=== PATIENT | male | born 1965 | race Caucasian/White ===

== ENCOUNTER 2021-11-12 19:44 | Emergency (ER) | payer BC, SELFPAY ==
[2021-11-12 19:51] VITALS: BP 152/80; PULSE 86; RESP 16; TEMP 36.7; O2SAT 94
--- NOTE | 2021-11-12 19:59 | XRR_ITS ---
PROCEDURE INFORMATION: Exam: XR Chest Exam date and time: 11/12/2021 10:21 PM Age: 55 years old Clinical indication: Shortness of breath; Additional info: SOB TECHNIQUE: Imaging protocol: Radiologic exam of the chest. Views: 1 view. COMPARISON: MRI Shoulder w/o LEFT* [id number] 03/05/2016 7:37 AM FINDINGS: Lungs: The lung bases are suboptimally assessed due to technique however the upper lungs are clear of focal consolidation.Right basilar linear opacity, likely atelectasis. Pleural spaces: Unremarkable. No pleural effusion. No pneumothorax. Heart/Mediastinum: Cardiac silhouette appears normal in size. No obvious vascular congestion. Bones/joints: No acute osseous findings. Other findings: Single view was submitted. XR/XR chest 1V portable [id number] IMPRESSION: Right basilar linear opacity, likely atelectasis. Suboptimal lung base assessment. Followup including lateral view may be obtained if clinically indicated.
--- NOTE | 2021-11-12 22:18 | CTR_ITS ---
PROCEDURE INFORMATION: Exam: CT Head Without Contrast Exam date and time: 11/12/2021 10:30 PM Age: 55 years old Clinical indication: Syncope and collapse TECHNIQUE: Imaging protocol: Computed tomography of the head without contrast. Radiation optimization: All CT scans at this facility use at least one of these dose optimization techniques: automated exposure control; mA and/or kV adjustment per patient size (includes targeted exams where dose is matched to clinical indication); or iterative reconstruction. COMPARISON: No relevant prior studies available. RADIATION DOSE METRICS: Total DLP (mGy-cm): 1152.68 FINDINGS: Brain: Normal. No hemorrhage. Unremarkable white matter. No mass effect. Cerebral ventricles: No ventriculomegaly. Paranasal sinuses: Visualized sinuses are unremarkable. No fluid levels. Mastoid air cells: Visualized mastoid air cells are well aerated. Bones/joints: Unremarkable. No acute fracture. Soft tissues: Unremarkable. CT/CT head wo con* [id number] IMPRESSION: No acute intracranial abnormality.
--- NOTE | 2021-11-12 22:18 | ED_ITS ---
HPI - Syncope General: Chief Complaint: Syncope Stated Complaint: SEIZURE LIKE ACTIVITY/SYNCOPE Time Seen by Provider: 11/12/21 21:46 Source: patient Mode of arrival: ambulatory Limitations: no limitations History of Present Illness: 55-year-old male states that roughly 3 hours ago he was sat in a recliner states he started having a coughing fit and had a syncopal episode. Family states he was lost consciousness for roughly 5 to 10 seconds he states that he currently feels back to normal. He states he is having these coughing fits before and has had lightheadedness with that this is a first time he passed out he denies any chest pain denies any shortness of breath denies any headache. Associated symptoms: Deny abdominal pain, fever(s), headache(s) or nausea Review of Systems Const: Denies: fever(s), chills, body aches or change in appetite Eyes: Denies: blurry vision or eye discomfort ENMT: Denies: throat pain or dental pain Card: Reports: syncope Resp: Denies: dyspnea GI: Denies: abdominal pain, nausea, vomiting or diarrhea : Denies: dysuria Musc: Denies: neck pain or back pain Skin/Breast: Denies: rash Neuro: Denies: headache(s) Psych: Denies: depression Noé/Lymph: Denies: easy bruising All/Imm: Denies: urticaria PFSH ED PFSH: Medical History Allergic rhinitis due to allergen Hx of testicular cancer Surgical History (Updated 08/04/21 @ 08:38 by Gus Pro MD) History of orchiectomy Social History Smoking and tobacco status: never smoked Physical Exam Const: COMMON NORMALS: no acute distress, patient oriented x3 and healthy appearing HENMT: COMMON NORMALS: normocephalic and atraumatic HEAD & SCALP: normocephalic and atraumatic Eye: COMMON NORMALS: Equal, round and reactive pupils present and EOMs intact bilaterally PUPIL: Yes Equal, round and reactive pupils present Neck/C-Spine: COMMON NORMALS: full ROM and supple Chest: COMMONS NORMALS: normal inspection of the chest and normal palpation of entire chest wall Resp: COMMON NORMALS: normal respiratory effort, No retractions, No use of accessory muscles and clear to auscultation bilaterally AUSCULTATION: clear to auscultation bilaterally Cardio: COMMON NORMALS: regular rate, regular rhythm and No murmurs present (Cardio) RATE: regular rate RHYTHM: regular rhythm GI: COMMON NORMALS: Normal to inspection, nondistended, normoactive bowel sounds present, Soft to palpation, non-tender and no masses PALPATION: Yes Soft to palpation Extremity: COMMON NORMALS: normal to inspection and full ROM Neuro: COMMON NORMALS: patient oriented x3, moves all extremities and no focal motor deficits Psych: COMMON NORMALS: mental status grossly normal, Normal thought process present and cooperative THOUGHT PROCESS: Normal thought process present Skin: COMMON NORMALS: no rashes or lesions noted and no wounds GENERAL SKIN EXAM: no rashes or lesions noted Course Vital Signs: Vital signs: Vital Signs Temperature 98.0 F 11/12/21 19:51 Pulse Rate 86 11/12/21 19:51 Respiratory Rate 16 11/12/21 19:51 Blood Pressure 152/80 11/12/21 19:51 Pulse Oximetry 94 11/12/21 19:51 MDM - Syncope Medical Decision Making Patient presents here with syncope likely COVID as he has had a chronic cough for months he is on lisinopril this could be causing his cough he has no signs of pneumonia will stop his lisinopril and write him a prescription for HCTZ he is to follow-up his PCP and return if worsening. Lab Data : 11/12/21 22:49 11/12/21 23:41 Radiology Impressions Chest X-Ray 11/12/21 19:59 IMPRESSION: Right basilar linear opacity, likely atelectasis. Suboptimal lung base assessment. Followup including lateral view may be obtained if clinically indicated. Head CT 11/12/21 22:18 IMPRESSION: No acute intracranial abnormality. Laboratory Results WBC 11.7 10^3/uL (4.0-10.0) H 11/12/21 22:49 RBC 4.78 10^6/uL (4.1-5.3) 11/12/21 22:49 Hgb 13.6 g/dL (11.7-16.6) 11/12/21 22:49 Hct 41.1 % (42.0-52.0) L 11/12/21 22:49 MCV 86.0 fl (80-94) 11/12/21 22:49 MCH 28.5 pg (28.0-34.0) 11/12/21 22:49 MCHC 33.1 g/dL (30.0-36.0) 11/12/21 22:49 RDW 15.9 % (12.1-15.1) H 11/12/21 22:49 Plt Count 249 10^3/cmm (130-400) 11/12/21 22:49 MPV 10.6 fL (7.4-10.4) H 11/12/21 22:49 Neut % (Auto) 67.3 % 11/12/21 22:49 Lymph % (Auto) 20.9 % 11/12/21 22:49 [place] % (Auto) 6.9 % 11/12/21 22:49 Eos % (Auto) 2.8 % 11/12/21 22:49 Baso % (Auto) 0.7 % 11/12/21 22:49 Neut # (Auto) 7.91 10^3/uL (1.8-7.7) H 11/12/21 22:49 Lymph # (Auto) 2.5 10^3/uL (0.8-4.8) 11/12/21 22:49 [place] # (Auto) 0.8 10^3/uL (0.2-0.9) 11/12/21 22:49 Eos # (Auto) 0.3 10^3/uL (0.0-0.8) 11/12/21 22:49 Baso # (Auto) 0.1 10^3/uL (0.0-0.1) 11/12/21 22:49 Nucleated RBC % (auto) 0 % 11/12/21 22:49 Nucleated RBCs # 0.0 /100WBC 11/12/21 22:49 Sodium 135 mmol/L (136-145) L 11/12/21 23:41 Potassium 4.6 mmol/L (3.5-5.1) 11/12/21 23:41 Chloride 99 mmol/L (98-107) 11/12/21 23:41 Carbon Dioxide 25 mmol/L (22-29) 11/12/21 23:41 Anion Gap 15.6 (5-19) 11/12/21 23:41 BUN 31 mg/dL (6-20) H 11/12/21 23:41 Creatinine 1.2 mg/dL (0.7-1.2) 11/12/21 23:41 GFR Calculation 62.6 mL/min (90-130) L 11/12/21 23:41 Glucose 364 mg/dL (65-115) H 11/12/21 23:41 Calculated Osmolality 301 mOsm/kg (285-295) H 11/12/21 23:41 Calcium 9.3 mg/dL (8.5-10.5) 11/12/21 23:41 Total Bilirubin 0.2 mg/dL (0.15-1.2) 11/12/21 23:41 AST 18 U/L (0-40) 11/12/21 23:41 ALT 34 U/L (0-41) 11/12/21 23:41 Alkaline Phosphatase 169 IU/L (40-130) H 11/12/21 23:41 Total Protein 7.1 g/dL (6.6-8.7) 11/12/21 23:41 Albumin 4.0 g/dL (3.5-5.2) 11/12/21 23:41 Globulin 3.1 g/dL (1.3-4.6) 11/12/21 23:41 Discharge Plan Discharge Patient Disposition: Home Clinical Impression: Syncope Condition: Stable Prescriptions: New hydrochlorothiazide 25 mg tablet 25 mg PO DAILY Qty: 30 0RF Discontinued lisinopril-hydrochlorothiazide 10-12.5 mg tablet 1 tab PO DAILY 0RF No Action Humalog U-100 Insulin 100 unit/mL cartridge See Rx Instructions SUBCUT TID 0RF Rx Instructions: SLIDING SCALE SUBCUT three times daily; Tresiba FlexTouch U-100 100 unit/mL (3 mL) insulin pen See Rx Instructions SUBCUT BID 0RF Rx Instructions: 24 units in the morning, 84 units at night SUBCUT twice a day; paroxetine HCl [Paxil] PO DAILY 0RF prednisone 20 mg tablet 60 mg PO DAILY 5 Days Qty: 15 0RF Discharge Orders: Discharge ED (Routine); Ordered 11/13/21 Ordered By: Kelvin Contreras Referrals: Nba Arreaga [Primary Care Provider] - Discharge Diet: Advance as tolerated Discharge Activity: Resume usual activity Patient Instructions: Syncope (ED) Coding Level of Care Code ED Trimming Department Blocker for Chg Fwd Exam Comprehensive
[2021-11-12 22:55] LABS: Basophils # 0.1 10^3/uL (0.0-0.1); Basophils % 0.7 %; Eosinophils # 0.3 10^3/uL (0.0-0.8); Eosinophils % 2.8 %; Hematocrit 41.1 % (42.0-52.0); Hemoglobin 13.6 g/dL (11.7-16.6); Lymphocytes # 2.5 10^3/uL (0.8-4.8); Lymphocytes % 20.9 %; Mean Corpuscular HGB Conc 33.1 g/dL (30.0-36.0); Mean Corpuscular Hemoglobin 28.5 pg (28.0-34.0); Mean Platelet Volume 10.6 fL (7.4-10.4); Monocytes # 0.8 10^3/uL (0.2-0.9); Monocytes % 6.9 %; Neutrophils # 7.91 10^3/uL (1.8-7.7); Neutrophils % 67.3 %; Nucleated Red Blood Cells % 0 %; Platelet Count 249 10^3/cmm (130-400); Red Blood Count 4.78 10^6/uL (4.1-5.3); Red Cell Distribution Width 15.9 % (12.1-15.1); White Blood Count 11.7 10^3/uL (4.0-10.0)
[2021-11-13 00:09] LABS: Alanine Aminotransferase 34 U/L (0-41); Alkaline Phosphatase 169 IU/L (40-130); Anion Gap 15.6 (5-19); Aspartate Amino Transferase 18 U/L (0-40); Blood Urea Nitrogen 31 mg/dL (6-20); Calcium 9.3 mg/dL (8.5-10.5); Carbon Dioxide 25 mmol/L (22-29); Chloride 99 mmol/L (98-107); Creatinine Clr Calc Pharmacy 102.4193; Globulin 3.1 g/dL (1.3-4.6); Glomerular Filtration Rate 62.6 mL/min (90-130); Glucose 364 mg/dL (65-115); Osmolality Calculated 301 mOsm/kg (285-295); Potassium 4.6 mmol/L (3.5-5.1); Sodium 135 mmol/L (136-145); Total Bilirubin 0.2 mg/dL (0.15-1.2); Total Protein 7.1 g/dL (6.6-8.7)
[2021-11-13 00:26] VITALS: BP 166/91; PULSE 82; RESP 17; O2SAT 95
== END 2021-11-13 00:28 | disposition home or self-care (01) ==
PROVIDERS: Emergency Provider Emergency Medicine; PCP Family Medicine
DX: R55 Syncope and collapse (principal); Z79.4 Long term (current) use of insulin; Z85.47 Personal history of malignant neoplasm of testis
CPT/HCPCS: 70450; 71045; 80053; 85025; 99285

== ENCOUNTER 2022-08-19 10:38 | Inpatient (IN) | payer BC, SELFPAY ==
[2022-08-19] VITALS (11 sets, daily range): BP systolic 124–212; BP diastolic 61–88; PULSE 66–112; RESP 18–19; TEMP 36.7–37.2; O2SAT 94–97; BMI 45.4
--- NOTE | 2022-08-19 10:45 | ECG_ITS ---
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 Measurements Intervals [place] Rate: 103 P: 142 WI: 138 QRS: 102 QRSD: 94 T: 134 QT: 317 QTc: 415 Interpretive Statements ECTOPIC ATRIAL TACHYCARDIA POSSIBLE LEFT ATRIAL ENLARGEMENT [-0.1mV P-WAVE IN V1/V2] RIGHT AXIS DEVIATION [QRS AXIS > 100] INCOMPLETE RIGHT BUNDLE BRANCH BLOCK [90+ ms QRS DURATION, TERMINAL R IN V1/V2, 40+ ms S IN I/aVL/V4/V5/V6] MODERATE ST DEPRESSION [0.05+ mV ST DEPRESSION] INTERPRETATION BASED ON A DEFAULT AGE OF 40 YEARS No previous ECG available for comparison Electronically Signed On 08-20-2022 1:32:41 CDT by David Evans M.D. [id number] f
--- NOTE | 2022-08-19 11:39 | XRR_ITS ---
PROCEDURE INFORMATION: Exam: XR Chest Exam date and time: 08/19/2022 12:24 PM Age: 56 years old Clinical indication: Cough and dyspnea; Additional info: Dyspnea/cough TECHNIQUE: Imaging protocol: Radiologic exam of the chest. Views: 1 view. COMPARISON: CR XR chest 1V portable [id number] 11/12/2021 10:21 PM FINDINGS: Lungs: Lungs are clear. Pleural spaces: There is no pleural effusion or pneumothorax. Heart/Mediastinum: Cardiomediastinal contours are unremarkable. Bones/joints: Bones are unremarkable. XR/XR chest 1V portable [id number] IMPRESSION: No acute findings.
--- NOTE | 2022-08-19 11:39 | PC.PHAR ---
pt states he takes care of his own medications-pt states he is no longer taking gabapentin 300mg hs ext shows last filled 08/11/22 30d/s pt states he took one cap and it didnt help so he is no longer taking-pt states he hasnt taken any of his meds or insulin for 2 days-
--- NOTE | 2022-08-19 11:43 | US_ITS ---
WS: [id number] RIGHT UPPER QUADRANT ULTRASOUND HISTORY: RUQ abd pain COMPARISON: 11/16/2012 Liver: 21.5 cm in length. Enlarged heterogeneous liver. The entire liver is not very well visualized due to marked attenuation and fatty infiltration. Portal Vein: Limited. Gallbladder: Normally distended gallbladder with no stones or wall thickening. CBD: 0.3 cm Pancreas: Not visualized. Right kidney: 9.3 cm in length. Limited. Normal size. Mass would be difficult to identified. No obvio us hydronephrosis. Aorta and IVC: Limited. No ascites. US/US gall bladder [id number] IMPRESSION: 1. Extremely limited evaluation of the RIGHT upper quadrant due to body habitu s. 2. Hepatomegaly with severe hepatic steatosis. Poor visualization of the liver . 3. Limited visualization of the gallbladder. No stones identified.
--- NOTE | 2022-08-19 11:52 | ED_ITS ---
HPI - Abdominal Pain General: Chief Complaint: Abdominal Pain Stated Complaint: abd pains Time Seen by Provider: 08/19/22 11:32 Source: patient Mode of arrival: ambulatory History of Present Illness: 56 yo male presents to the Er with complaints of RUQ abd pain and n/v, loss of appetite. He has had this a couple days of abd pain worsened by eating. He denies any medic easy melena hematemesis cough cramps no dysuria urgency or frequency no fever. He has not had episodes like this in the past. Patient is a history hypertension diabetes mellitus hyperlipidemia no history of coronary disease MD elicited complaint: abdominal pain Pertinent past history: none Onset (ago): day(s) Pain Consistency: constant Severity: moderate Quality: cramping Exacerbating factors: nothing Relieving factors: nothing Associated Symptoms: Reports bloating, GI cramping, dyspepsia, nausea, poor appetite and vomiting; Denies anorexia, belching, change in bowel habits, change in stool character, chills, coffee ground emesis, constipation, diarrhea, dysuria, excessive flatus, fever(s), heartburn, hematochezia, hematuria, hematemesis, fecal incontinence, loose stools, melena and syncope Review of Systems Const: Denies: fever(s), chills, fatigue or malaise ENMT: Denies: throat pain, ear or mastoid pain, nasal discharge or nasal congestion Card: Denies: chest pain, palpitations, irregular heart rhythm or syncope Resp: Denies: dyspnea, productive cough or non-productive cough GI: Reports: abdominal pain, nausea, vomiting, bloating and GI cramping; Denies: hematemesis, coffee ground emesis, heartburn, diarrhea, constipation, belching, excessive flatus, fecal incontinence, change in bowel habits, change in stool character, hematochezia or melena : Denies: flank pain, dysuria, urinary frequency, urinary urgency or hematuria Skin/Breast: Denies: rash or pruritus PFSH ED PFSH: Medical History (Updated 08/19/22 @ 13:59 by Tobias Cheema DO) Allergic rhinitis due to allergen Diabetes HTN (hypertension) Hx of testicular cancer Surgical History History of orchiectomy Social History Smoking and tobacco status: never smoked Physical Exam Const: GENERAL APPEARANCE: cooperative and comfortable ORIENTATION/CONSCIOUSNESS: Yes awake, Yes oriented to person, Yes oriented to place and Yes oriented to time HENMT: COMMON NORMALS: normocephalic, atraumatic and hearing grossly normal bilaterally HEAD & SCALP: normocephalic and atraumatic Resp: COMMON NORMALS: normal respiratory effort, No retractions, No use of accessory muscles and clear to auscultation bilaterally AUSCULTATION: clear to auscultation bilaterally Cardio: COMMON NORMALS: regular rate, regular rhythm and No murmurs present (Cardio) RATE: regular rate RHYTHM: regular rhythm GI: COMMON NORMALS: No hepatosplenomegaly present AUSCULTATION: Yes normoactive bowel sounds PALPATION: Yes Tenderness to palpation present (GI) (+Concord sign ), No Guarding due to palpation present (GI) and Yes No hepatosplenomegaly present : COMMON NORMALS: Yes no CVA tenderness BLADDER/KIDNEY EXAM: Yes no CVA tenderness Back/Pelvis: COMMON NORMALS: no CVA tenderness Extremity: COMMON NORMALS: normal to inspection, capillary refill normal, no clubbing, cyanosis or edema, no calf tenderness and no pedal edema Neuro: SENSORIUM/ORIENTATION: Yes oriented to person, Yes oriented to place an d Yes oriented to time Skin: COMMON NORMALS: no rashes or lesions noted GENERAL SKIN EXAM: no rashes or lesions noted Course Vital Signs: Vital signs: Vital Signs Temperature 98.0 F 08/19/22 10:42 Pulse Rate 94 08/19/22 12:37 Respiratory Rate 18 08/19/22 10:42 Blood Pressure 128/78 08/19/22 13:29 Pulse Oximetry 95 08/19/22 13:29 Oxygen Delivery Me thod Room Air 08/19/22 11:44 MDM - Abdominal Pain Medical Decision Making All bladder ultrasound was indeterminate due to body habitus. CT confirms clinical suspicion of cholecystitis patient has a leukocytosis. Discussed Dr. Polanco he asked that medicine consult on the patient. Orders written have also discussed Dr. Hunt who will see the patient. Additionally patient was giving an initial dose of Zosyn. Medical Records I reviewed the patient's medical records. Lab Data I reviewed the patient's lab results. 08/19/22 11:42 08/19/22 11:42 Labs/Radiology: Radiology Impressions Chest X-Ray 08/19/22 11:39 IMPRESSION: No acute findings. Gallbladder Ultrasound 08/19/22 11:43 IMPRESSION: 1. Extremely limited evaluation of the RIGHT upper quadrant due to body habitus. 2. Hepatomegaly with severe hepatic steatosis. Poor visualization of the liver. 3. Limited visualization of the gallbladder. No stones identified. Abdomen/Pelvis CT 08/19/22 12:48 IMPRESSION: 1. Moderate inflammatory process in the RIGHT upper quadrant extending between the gallbladder and the proximal duodenum. Favor this is probably mild acute cholecystitis with secondary extension to the duodenum. 2. No bile duct dilatation. 3. Hepatic steatosis and hepatomegaly. 4. Nonobstructing bilateral renal calculi. 5. Normal appendix. Laboratory Results WBC 26.2 10^3/uL (4.0-10.0) H 08/19/22 11:42 RBC 4.88 10^6/uL (4.1-5.3) 08/19/22 11:42 Hgb 13.5 g/dL (11.7-16.6) 08/19/22 11:42 Hct 41.7 % (42.0-52.0) L 08/19/22 11:42 MCV 85.5 fl (80-94) 08/19/22 11:42 MCH 27.7 pg (28.0-34.0) L 08/19/22 11:42 MCHC 32.4 g/dL (30.0-36.0) 08/19/22 11:42 RDW 16.3 % (12.1-15.1) H 08/19/22 11:42 Plt Count 280 10^3/cmm (130-400) 08/19/22 11:42 MPV 9.7 fL (7.4-10.4) 08/19/22 11:42 Neut % (Auto) 81.4 % 08/19/22 11:42 Lymph % (Auto) 6.8 % 08/19/22 11:42 [place] % (Auto) 9.9 % 08/19/22 11:42 Eos % (Auto) 0.0 % 08/19/22 11:42 Baso % (Auto) 0.3 % 08/19/22 11:42 Neut # (Auto) 21.35 10^3/uL (1.8-7.7) H 08/19/22 11:42 Lymph # (Auto) 1.8 10^3/uL (0.8-4.8) 08/19/22 11:42 [place] # (Auto) 2.6 10^3/uL (0.2-0.9) H 08/19/22 11:42 Eos # (Auto) 0.0 10^3/uL (0.0-0.8) 08/19/22 11:42 Baso # (Auto) 0.1 10^3/uL (0.0-0.1) 08/19/22 11:42 Nucleated RBC % (auto) 0 % 08/19/22 11:42 Nucleated RBCs # 0.0 /100WBC 08/19/22 11:42 Sodium 133 mmol/L (136-145) L 08/19/22 11:42 Potassium 4.4 mmol/L (3.5-5.1) 08/19/22 11:42 Chloride 95 mmol/L (98-107) L 08/19/22 11:42 Carbon Dioxide 25 mmol/L (22-29) 08/19/22 11:42 Anion Gap 17.4 (5-19) 08/19/22 11:42 BUN 19 mg/dL (6-20) 08/19/22 11:42 Creatinine 1.1 mg/dL (0.7-1.2) 08/19/22 11:42 GFR Calculation 69.0 mL/min (90-130) L 08/19/22 11:42 Glucose 244 mg/dL (65-115) H 08/19/22 11:42 Calculated Osmolality 286 mOsm/kg (285-295) 08/19/22 11:42 Lactic Acid 2.0 mmol/L (0.5-2.2) 08/19/22 11:42 Calcium 9.4 mg/dL (8.5-10.5) 08/19/22 11:42 Total Bilirubin 0.9 mg/dL (0.15-1.2) 08/19/22 11:42 AST 19 U/L (0-40) 08/19/22 11:42 ALT 33 U/L (0-41) 08/19/22 11:42 Alkaline Phosphatase 145 U/L (40-130) H 08/19/22 11:42 Troponin T Baseline 15 ng/L (0-15) 08/19/22 11:42 Total Protein 7.5 g/dL (6.6-8.7) 08/19/22 11:42 Albumin 3.9 g/dL (3.5-5.2) 08/19/22 11:42 Globulin 3.6 g/dL (1.3-4.6) 08/19/22 11:42 Lipase 14 U/L (13-60) 08/19/22 11:42 Urine Color Yellow (Yellow) 08/19/22 11:56 Urine Appearance Clear (CLEAR) 08/19/22 11:56 Urine pH 6.5 (5-7) 08/19/22 11:56 Ur Specific [place] 1.015 (1.005-1.030) 08/19/22 11:56 Urine Protein Trace (Negative) 08/19/22 11:56 Urine Glucose (UA) 4+ (Normal) H 08/19/22 11:56 Urine Ketones Negative (Negative) 08/19/22 11:56 Urine Blood Neg (Negative) 08/19/22 11:56 Urine Nitrate Negative (Negative) 08/19/22 11:56 Urine Bilirubin Neg (Negative) 08/19/22 11:56 Urine Urobilinogen 1 mg/dL (Negative) H 08/19/22 11:56 Ur Leukocyte Esterase Negative (Negative) 08/19/22 11:56 Urine RBC None /hpf (0-2) 08/19/22 11:56 Urine WBC Rare /hpf (0-5) 08/19/22 11:56 Ur Squamous Epith Cells Rare /hpf (0-5) 08/19/22 11:56 Amorphous Sediment Not Reportable 08/19/22 11:56 Urine Bacteria None /hpf (NONE) 08/19/22 11:56 Discharge Plan Discharge Patient Disposition: Admitted As Inpatient Clinical Impression: Acute cholecystitis Condition: Stable Prescriptions: No Action atorvastatin 40 mg tablet 40 mg PO BEDTIME cetirizine 10 mg tablet 10 mg PO QAM amlodipine 5 mg tablet 5 mg PO QAM Aspir-81 81 mg Tablet,Delayed Release (Dr/Ec) 81 mg PO DAILY famotidine 20 mg tablet 20 mg PO QAM paroxetine HCl 30 mg tablet 30 mg PO BEDTIME Aleve 220 mg Tablet 440 mg PO BEDTIME cholecalciferol (vitamin D3) 1,250 mcg (50,000 unit) capsule See Rx Instructions .ROUTE .COMPLEX Rx Instructions: 50,000 units po every 15 days Tresiba FlexTouch U-200 200 unit/mL (3 mL) insulin pen See Rx Instructions .ROUTE .COMPLEX Rx Instructions: 40 units subcutaneously qam and 100 units at bedtime Humalog KwikPen Insulin 200 unit/mL (3 mL) insulin pen See Rx Instructions .ROUTE .COMPLEX Rx Instructions: INJECT 45 UNITS 3 TIMES DAILY PLUS SLIDING SCALE. MAX DAILY 175 UNITS hydrochlorothiazide 25 mg tablet 25 mg PO QAM Referrals: Nba Arreaga [Primary Care Provider] - Coding Level of Care Code ED Endoscopy Technican for Juan Leos
--- NOTE | 2022-08-19 11:54 | ECG_ITS ---
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 Measurements Intervals [place] Rate: 97 P: 71 [place]: 143 QRS: 47 QRSD: 97 T: 60 QT: 331 QTc: 422 Interpretive Statements SINUS RHYTHM No previous ECG available for comparison Electronically Signed On 08-20-2022 1:32:46 CDT by David Evans M.D. [id number]
[2022-08-19 11:57] LABS: Basophils # 0.1 10^3/uL (0.0-0.1); Basophils % 0.3 %; Hematocrit 41.7 % (42.0-52.0); Hemoglobin 13.5 g/dL (11.7-16.6); Lymphocytes # 1.8 10^3/uL (0.8-4.8); Lymphocytes % 6.8 %; Mean Corpuscular HGB Conc 32.4 g/dL (30.0-36.0); Mean Corpuscular Hemoglobin 27.7 pg (28.0-34.0); Mean Corpuscular Volume 85.5 fl (80-94); Mean Platelet Volume 9.7 fL (7.4-10.4); Monocytes # 2.6 10^3/uL (0.2-0.9); Monocytes % 9.9 %; Neutrophils # 21.35 10^3/uL (1.8-7.7); Neutrophils % 81.4 %; Nucleated Red Blood Cells % 0 %; Platelet Count 280 10^3/cmm (130-400); Red Blood Count 4.88 10^6/uL (4.1-5.3); Red Cell Distribution Width 16.3 % (12.1-15.1); White Blood Count 26.2 10^3/uL (4.0-10.0)
[2022-08-19 12:17] LABS: Troponin(5th) Baseline 15 ng/L (0-15)
[2022-08-19 12:19] LABS: Alanine Aminotransferase 33 U/L (0-41); Albumin Level 3.9 g/dL (3.5-5.2); Alkaline Phosphatase 145 U/L (40-130); Anion Gap 17.4 (5-19); Aspartate Amino Transferase 19 U/L (0-40); Blood Urea Nitrogen 19 mg/dL (6-20); Calcium 9.4 mg/dL (8.5-10.5); Carbon Dioxide 25 mmol/L (22-29); Chloride 95 mmol/L (98-107); Globulin 3.6 g/dL (1.3-4.6); Glucose 244 mg/dL (65-115); Lipase 14 U/L (13-60); Osmolality Calculated 286 mOsm/kg (285-295); Potassium 4.4 mmol/L (3.5-5.1); Sodium 133 mmol/L (136-145); Total Bilirubin 0.9 mg/dL (0.15-1.2); Total Protein 7.5 g/dL (6.6-8.7)
[2022-08-19 12:32] LABS: Add Urine Microscopic? YES; Bilirubin Urine Neg (Negative); Blood Urine Neg (Negative); Glucose Urine UA 4+ (Normal); Ketones Urine Negative (Negative); Leukocyte Esterase Urine Negative (Negative); Nitrate Urine Negative (Negative); Protein Urine Trace (Negative); Specific Gravity, Urine 1.015 (1.005-1.030); Urine Appearance Clear (CLEAR); Urine Color Yellow (Yellow); Urobilinogen Urine 1 mg/dL (Negative); WBC Urine RARE /hpf (0-5); pH Urine 6.5 (5-7)
[2022-08-19 12:33] LABS: Add Urine Culture? No; Squamous Epithelial Cell Urine RARE /hpf (0-5)
--- NOTE | 2022-08-19 12:48 | CT_ITS ---
WS: [id number] CT ABDOMEN AND PELVIS NONCONTRAST HISTORY: Abdominal pain TECHNIQUE: Imaging performed through the abdomen and pelvis. Coronal and sagittal reformats are submi tted. All CT scans at [facility] use at least one of these dose optimization techniques: auto mated exposure control; mA and/or kV adjustment per patient size (includes targeted exams where dose is matched to clinical indication); or iterative reconstruction. DLP: 1434.43 mGy.cm COMPARISON: 11/16/2012 Lower thorax: Lung bases are clear. Visualized heart is normal. No hiatal hernia. Liver: Diffuse moderate hepatic steatosis with hepatomegaly. No bile duct dilatation. Gallbladder: Gallbladder is normally distended. No hydrops. There is a moderate amount of inflammatio n surrounding the gallbladder. Greatest along the inferior medial gallbladder. Pancreas: Normal size and attenuation. Normal pancreatic duct. No pancreatitis or mass. Spleen: Normal size spleen with granulomata. Adrenal glands: Normal. No mass. Right kidney: Normal size kidney. No obstruction. There are a few very tiny calcifications in the low er pole. Left kidney: Normal size kidney. No obstruction. There are a few tiny calcifications. Aorta: Mild atherosclerosis abdominal aorta with no aneurysm. No free fluid, intraperitoneal air or significant lymphadenopathy. GI tract: Stomach is normally distended. Mild/moderate inflammation surrounding the first and second portion of the duodenum. This inflammation extends from the gallbladder to the duodenum. No free flui d. Normal appendix. Normal colon. Abdominal wall: Negative. No hernia. Pelvis: Normal. Osseous structures: Degenerative disc disease at L2-3, L4-5 and L5-S1. CT/CT abdomen pelvis wo con [id number] IMPRESSION: 1. Moderate inflammatory process in the RIGHT upper quadrant extending between the gallbladder and the proximal duodenum. Favor this is probably mild acute c holecystitis with secondary extension to the duodenum. 2. No bile duct dilatation. 3. Hepatic steatosis and hepatomegaly. 4. Nonobstructing bilateral renal calculi. 5. Normal appendix.
[2022-08-19] MEDS: piperacillin-tazobactam 3.375 GM in sodium chloride 0.9% (plus) 50 ML IV ×2 (13:37→21:52)
--- NOTE | 2022-08-19 13:59 | PC.NURSE ---
Pt states he has taken morphine before and had no trouble or reaction with it.
[2022-08-19] MEDS: morphine 4 mg/mL SDV 1 mL IVP ×2 (14:01→18:15)
--- NOTE | 2022-08-19 14:43 | USCV_ITS ---
Anthony Littlejohn Age: 56 Gender: M : 1965 Exam Date: 08/19/2022 15:32 Ordering Phys: Corky Hunt MD Technologist: Eduar Hanson [place] [facility] [place]: CHEST PAIN/ PRESSURE WITH EXERTION BP: 105 / 62 HR: 99 Rhythm: Sinus Technical Quality: Adequate MEASUREMENTS (Male / Female) Normal Values 2D ECHO LV Diastolic Diameter PLAX 4.3 cm 4.2 - 5.9 / 3.9 - 5.3 cm LV Systolic Diameter PLAX 2.6 cm IVS Diastolic Thickness 1.1 cm 0.6 - 1.0 / 0.6 - 0.9 cm IVS Systolic Thickness 1.4 cm LVPW Diastolic Thickness 1.5 cm 0.6 - 1.0 / 0.6 - 0.9 cm LVPW Systolic Thickness 1.7 cm LVOT Diameter 2.0 cm LV Ejection Fraction 2D Teich 69.7 % LV Ejection Fraction MOD 2C 55.7 % LV Ejection Fraction 2C AL 56.6 % LA Diameter 3.8 cm LA Width 3.7 cm LA Height 4.8 cm RA Width 2.1 cm RA Height 4.0 cm Aorta at Sinotubular Diameter 2.8 cm M-MODE Aortic Annulus Diameter 3.0 cm LA Ao Ratio MM 1.2 MV E Point Septal Separation 0.6 cm DOPPLER AV Peak Velocity 133.7 cm/s LVOT Peak Velocity 114.0 cm/s AV Area Cont Eq vti 2.6 cm squared AV Area Cont Eq pk 2.8 cm squared MV Peak Velocity 117.0 cm/s MV Area PHT 5.1 cm squared Mitral E to A Ratio 0.7 MV E' Velocity 35.0 cm/s Mitral E to MV E' Ratio 7.0 Mitral E to LV E' Lateral Ratio 5.5 Mitral E to LV E' Septal Ratio 9.7 Right Atrial Pressure 8.0 mmHg PV Peak Velocity 131.7 cm/s RV Acceleration Time 0.1 s RV Ejection Time 0.2 s RV AcT/ET 0.5 FINDINGS Left Ventricle Mild left ventricular hypertrophy. No regional wall motion abnormalities. Normal left ventricular size and systolic function, EF 59 %. Grade I/IV diastolic dysfunction (abnormal relaxation filling pattern), normal to mildly elevated filling pressures. Right Ventricle Possibly normal size and ejection fraction Right Atrium Right atrium not well visualized. Left Atrium Left atrium, upper limit of normal size Mitral Valve Thickened mitral valve. Mild mitral annular calcification. Trace mitral valve regurgitation. Aortic Valve No gross abnormalities noted Tricuspid Valve Tricuspid valve not well visualized. Pulmonic Valve Pulmonic valve not well visualized. Pericardium Normal pericardium without effusion. Aorta Normal ascending aorta dimension. IVC The inferior vena cava appears normal. CONCLUSIONS Mild left ventricular hypertrophy. No regional wall motion abnormalities. Normal left ventricular size and systolic function, EF 59 %. Grade I/IV diastolic dysfunction (abnormal relaxation filling pattern), normal to mildly elevated filling pressures. Thickened mitral valve. Mild mitral annular calcification. Trace mitral valve regurgitation. Left atrium, upper limit of normal size. There is no pericardial effusion. Technically some what difficult study because of the poor ultrasonic window. Dr David Evans MD FACC (Electronically Signed) Final Date: 19 August 2022 20:47 S
[2022-08-19 14:49] LABS: Troponin 5 2HR 15.08 ng/L (0-15)
[2022-08-19 14:52] LABS: Troponin 5 2HR Delta 0.08 ABS# (0-10)
--- NOTE | 2022-08-19 15:02 | P.CONIM_ITS ---
Providers/Reason For Consult Consulting Physician/Specialty*: Dr. Polanco/Surgery Reason for Consult*: CHF Primary Care Provider: Nba Arreaga History of Present Illness History of Present Illness Very pleasant 56-year-old gentleman with past medical history of morbid obesity, DM 2, HTN, HLD, CAMERON, nightly on CPAP, for some time has been having progressive exertional dyspnea, also reports with exertion having chest pain/pressure, states that was referred for stress test through his primary provider and stress test was supposed to be scheduled in a week. He denies any chest pain or pressure at rest. He takes a baby aspirin chronically, but denies any history of heart attack or stroke in himself. His father had a heart attack first at age 45, did require bypass surgery down the road, but was also a smoker. Patient is a never smoker but has had secondhand smoke exposure from his parents. In ER work-up with finding of leukocytosis 26.2, alkaline phosphatase elevation 145, T. bili and AST, LT normal. Gallbladder ultrasound extremely limited. Hepatomegaly with severe hepatic steatosis noted. CT abdomen pelvis with moderate inflammatory process in the right upper quadrant extending between gallbladder and proximal duodenum. Favored probably mild acute cholecystitis with second extension to the duodenum. No bile duct dilation. Hepatic steatosis and hepatomegaly. Nonobstructing bilateral renal calculi. Normal appendix. Medicine was consulted by surgery due to initially concern for congestive heart failure. Review of Systems Const: Denies: fever(s), chills, body aches or malaise ENMT: Denies: throat pain Card: Denies: chest pain, edema, pre-syncope or dyspnea on exertion Resp: Denies: dyspnea, productive cough, change in phlegm color or hemoptysis GI: Denies: abdominal pain, nausea, vomiting, diarrhea, constipation, hematochezia or melena : Denies: flank pain, difficulty urinating, urinary frequency or hematuria Musc: Denies: back pain, joint swelling or joint redness Skin/Breast: Denies: rash or new lesions Neuro: Denies: headache(s), numbness in extremities, weakness in extremities, dizziness, confusion or seizure-like activity Noé/Lymph: Denies: easy bleeding or tender lymph nodes Medications/Allergies Home Medications Medication Instructions Recorded Confirmed Last Taken Type amlodipine 5 mg tablet 5 mg PO QAM 08/19/22 08/19/22 2 Days Ago History ~04/18/23 aspirin 81 mg tablet,delayed 81 mg PO DAILY 08/19/22 08/19/22 2 Days Ago History release ~08/17/22 atorvastatin 40 mg tablet 40 mg PO BEDTIME 08/19/22 08/19/22 2 Days Ago History ~08/17/22 cetirizine 10 mg tablet 10 mg PO QAM 08/19/22 08/19/22 2 Days Ago History ~08/17/22 cholecalciferol (vitamin D3) 1,250 See Rx Instructions .Route .COMPLEX 08/19/22 08/19/22 Unknown History mcg (50,000 unit) capsule famotidine 20 mg tablet 20 mg PO QAM 08/19/22 08/19/22 2 Days Ago History ~08/17/22 hydrochlorothiazide 25 mg tablet 25 mg PO QAM 08/19/22 08/19/22 2 Days Ago History ~08/17/22 insulin degludec 200 unit/mL (3 See Rx Instructions .Route .COMPLEX 08/19/22 08/19/22 2 Days Ago History mL) subcutaneous pen (Tresiba ~08/17/22 FlexTouch U-200 insulin) insulin lispro 200 unit/mL (3 mL) See Rx Instructions .Route .COMPLEX 08/19/22 08/19/22 2 Days Ago History subcutaneous pen (Humalog KwikPen ~08/17/22 U-200 Insulin) naproxen sodium 220 mg tablet 440 mg PO BEDTIME 08/19/22 08/19/22 2 Days Ago History (Aleve) ~08/17/22 paroxetine HCl 30 mg tablet 30 mg PO BEDTIME 08/19/22 08/19/22 2 Days Ago History ~08/17/22 Allergies Allergy/AdvReac Type Severity Reaction Status Date / Time chlorpromazine Allergy Intermediate Unknown Verified 02/26/22 15:12 dexamethasone Allergy Unknown Unknown Verified 02/26/22 15:12 erythromycin base Allergy Unknown Unknown Verified 02/26/22 15:12 ibuprofen Allergy Unknown Unknown Verified 02/26/22 15:12 metoclopramide Allergy Unknown Unknown Verified 02/26/22 15:12 pantoprazole Allergy Unknown Unknown Verified 02/26/22 15:12 acetaminophen [From Vicodin] Allergy Unknown Verified 02/26/22 15:12 hydrocodone [From Vicodin] Allergy Unknown Verified 02/26/22 15:12 methylpred-80 Allergy Unknown Unknown Uncoded 02/26/22 15:12 PFSH Acute PFSH: Medical History Allergic rhinitis due to allergen Diabetes HTN (hypertension) Hx of testicular cancer CAMERON (obstructive sleep apnea) Surgical History History of orchiectomy Social History Smoking and tobacco status: never smoked Second hand smoke exposure: Yes Alcohol intake: never Substance/Drug Use: never Lives independently: Yes Household members: spouse Marital status: Current occupational status: employed Vitals/I&O/Wt Last Vital Signs Temp 98.0 F 08/19/22 10:42 Pulse 104 H 08/19/22 14:04 Resp 18 08/19/22 10:42 BP 128/78 08/19/22 14:04 Pulse Ox 97 08/19/22 14:04 O2 Del Method Room Air 08/19/22 11:44 08/19/22 08/19/22 08/19/22 06:59 14:59 22:59 Intake Total 35 / 35 Balance 35 / 35 Weight last 48 hrs Weight 151.953 kg Physical Exam Const: COMMON NORMALS: patient oriented x3 and alert GENERAL APPEARANCE: cooperative NUTRITIONAL APPEARANCE: obese ORIENTATION/CONSCIOUSNESS: Yes awake HENMT: COMMON NORMALS: oropharynx normal Neck/C-Spine: COMMON NORMALS: no JVD Resp: COMMON NORMALS: normal respiratory effort and clear to auscultation bilaterally AUSCULTATION: clear to auscultation bilaterally Cardio: COMMON NORMALS: no JVD, regular rhythm, S1 normal heart sound present, S2 normal heart sound present and No murmurs present (Cardio) RHYTHM: regular rhythm HEART SOUNDS: S1 normal heart sound present and S2 normal heart sound present GI: COMMON NORMALS: Normal to inspection, nondistended, normoactive bowel sounds present, Soft to palpation and non-tender PALPATION: Yes Soft to palpation and Yes Tenderness to palpation present (GI) Details: RUQ Extremity: COMMON NORMALS: no joint enlargement and no pedal edema Neuro: COMMON NORMALS: patient oriented x3 and moves all extremities SENSORIUM/ORIENTATION: Yes alert Skin: COMMON NORMALS: no rashes or lesions noted GENERAL SKIN EXAM: no rashes or lesions noted Data 08/19/22 11:42 08/19/22 11:42 A&P Assessment and plan (1) Acute cholecystitis: Pending surgery assessment, however, patient reports his exertion is very limited he gets short of breath with walking only short distance, he also gets chest pain or pressure in case of exertion especially walking uphill or 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 Has been referred for stress test. Obtaining echocardiogram, requesting cardiology consultation. Noted cytosis 26. Blood cultures collected, follow-up. Lipase not elevated 14. UA unremarkable. Zosyn. Requiring IV morphine for pain. (2) Duodenitis: Switch famotidine to PPI. Stop naproxen. Consider follow-up with endoscopy. (3) Exertional chest pain: His provides history, he forgot to mention that he has been scheduled for stress test on the outpatient side by primary provider. Baseline troponin is normal. No chest pain or pressure at rest. No CHF symptoms. First EKG with reported ST depression although I do not really appreciated on my interpretation. Assess with TTE. Cardiology consultation. Continue aspirin. Risk factors for CAD include family history, father had PA at 45, secondhand smoke exposure, morbid obesity, DM, HTN, HLD. (4) Exertional shortness of breath: In addition to possible cardiac causes as above, may benefit from pulmonary function testing. Denies any known history of lung disease. History of secondhand smoke exposure from his parents. (5) CAMERON (obstructive sleep apnea): Wears nightly CPAP. (6) HTN (hypertension): Monitor vitals/blood pressures. 1 value of blood pressure up to 212/82. Curren tly better 140/88. (7) Diabetes: On rather large doses of insulin, Tresiba 40 units in the morning, 100 at night, as well as 45 Humalog 3 times daily plus sliding scale. Uses U200 insulin at home. As for now he is n.p.o., decrease long-acting insulin to 20 in the morning, 50 at night, decrease short acting insulin to 20 3 times daily before meals, sliding scale. Consistent carbohydrate diet when resumed. Plan Discussed with ER physician, surgery and cardiology, ER documentation reviewed. Consult Attestations Medical Necessity Statement: Admission of over 2 midnights anticipated for assessment and management of acute illness with complicated cardiac condition with cholecystitis, duodenitis initial minute with exertional chest pain pressure, risk factors of CAD Diagnoses Acute cholecystitis K81.0 Duodenitis K29.80 Exertional chest pain R07.9 Exertional shortness of breath R06.02 CAMERON (obstructive sleep apnea) G47.33 HTN (hypertension) I10 Diabetes E11.9
[2022-08-19] MEDS: perflutren protein-a microsphr 0.22 mg/mL SDV 3 mL IV (16:21)
--- NOTE | 2022-08-19 17:31 | PM.CONSULT ---
Providers/Reason For Consult Consulting Physician/Specialty*: KHOI Evans MD/cardiology Reason for Consult*: Patient with exertional angina/possible acute cholecystitis/preop evaluation Requesting Physician: Dr. Hunt Attending Physician: Corky Hunt Primary Care Provider: Nba Arreaga History of Present Illness History of Present Illness Anthony Littlejohn is a 56 year old male with a history of diabetes, high blood pressure, dyslipidemia, sleep apnea, he is presenting with complaints of right upper quadrant pain . He started having the pain Tuesday evening around 5:00 or so. He had the pain throughout the night up to 1:30 in the morning when the pain started subsiding. At that time he went back to bed. The pain was radiating to the back and also to the epigastric area. He had associated some nausea. No chest pain or palpitations. No dizziness or any other associated symptoms. He felt okay on Tuesday. Started having pain again on Tuesday evening around 7:00. More or less similar quality of pain. This time the pain never subsided. He continued to have the pain with waxing and waning. For that reason, he came to the emergency room today. He might have had a low-grade fever. He had the nausea but no vomiting. No orthopnea PND. This patient has been complaining of shortness of breath for the last few years. This been progressively getting worse. He may have gained around 50 to 60 pounds in the last 3 years. He is known to have sleep apnea and is using the CPAP machine at home. He has high blood pressure and diabetes for the last 8 years or so and has been taking medications. He also is on a lipid-lowering agent. In 2019, he had a stress test to evaluate his shortness of breath. There is a questionable area of ischemia in the circumflex artery territory. Subsequently had a cardiac catheterization at the [facility]. He was found to have minimal plaques- as per the patient and his . Because of his worsening of the shortness of breath, he is scheduled for another stress test at the [facility] in [place] for the third of next month, by Dr. Arreaga, his primary care provider.. According to the patient, he never had any chest pain. Denies any palpitation or dizziness. His father had a myocardial infarction in his 40s. He used to be heavy smoker. He also had lung cancer. No other relevant family history. He denies any smoking abuse, alcohol abuse or any other substance abuse. He has been fairly active. 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 EYES: No blurring of vision or other visual disturbances lately. ENT: No hoarseness of voice, auditory disturbances or sore throat. CARDIOVASCULAR: As mentioned above. RESPIRATORY: No significant cough. GASTROINTESTINAL: As mentioned above GENITOURINARY: No dysuria or hematuria. INTEGUMENTARY: No skin rashes or history of skin cancer. NEURO: No transient ischemic attacks or amaurosis. PSYCHIATRIC: No history of psychosis or major depression. HEMATOLOGIC: No bleeding disorders or significant anemia. ENDOCRINE: No history of polyuria or polydipsia. MUSCULOSKELETAL: No recent joint pain or swelling. ALLERGY/IMMUNOLOGY: As mentioned above. Medications/Allergies Home Medications Medication Instructions Recorded Confirmed Last Taken Type amlodipine 5 mg tablet 5 mg PO QAM 08/19/22 08/19/22 2 Days Ago History ~08/17/22 aspirin 81 mg tablet,delayed 81 mg PO DAILY 08/19/22 08/19/22 2 Days Ago History release ~08/17/22 atorvastatin 40 mg tablet 40 mg PO BEDTIME 08/19/22 08/19/22 2 Days Ago History ~08/17/22 cetirizine 10 mg tablet 10 mg PO QAM 08/19/22 08/19/22 2 Days Ago History ~08/17/22 cholecalciferol (vitamin D3) 1,250 See Rx Instructions .Route .COMPLEX 08/19/22 08/19/22 Unknown History mcg (50,000 unit) capsule famotidine 20 mg tablet 20 mg PO QAM 08/19/22 08/19/22 2 Days Ago History ~08/17/22 hydrochlorothiazide 25 mg tablet 25 mg PO QAM 08/19/22 08/19/22 2 Days Ago History ~08/17/22 insulin degludec 200 unit/mL (3 See Rx Instructions .Route .COMPLEX 08/19/22 08/19/22 2 Days Ago History mL) subcutaneous pen (Tresiba ~08/17/22 FlexTouch U-200 insulin) insulin lispro 200 unit/mL (3 mL) See Rx Instructions .Route .COMPLEX 08/19/22 08/19/22 2 Days Ago History subcutaneous pen (Humalog KwikPen ~08/17/22 U-200 Insulin) naproxen sodium 220 mg tablet 440 mg PO BEDTIME 08/19/22 08/19/22 2 Days Ago History (Aleve) ~08/17/22 paroxetine HCl 30 mg tablet 30 mg PO BEDTIME 08/19/22 08/19/22 2 Days Ago History ~08/17/22 Allergies Allergy/AdvReac Type Severity Reaction Status Date / Time chlorpromazine Allergy Intermediate Unknown Verified 02/26/22 15:12 dexamethasone Allergy Unknown Unknown Verified 02/26/22 15:12 erythromycin base Allergy Unknown Unknown Verified 02/26/22 15:12 ibuprofen Allergy Unknown Unknown Verified 02/26/22 15:12 metoclopramide Allergy Unknown Unknown Verified 02/26/22 15:12 pantoprazole Allergy Unknown Unknown Verified 02/26/22 15:12 acetaminophen [From Vicodin] Allergy Unknown Verified 02/26/22 15:12 hydrocodone [From Vicodin] Allergy Unknown Verified 02/26/22 15:12 methylpred-80 Allergy Unknown Unknown Uncoded 02/26/22 15:12 PFSH Acute PFSH: Medical History Allergic rhinitis due to allergen Diabetes HTN (hypertension) Hx of testicular cancer CAMERON (obstructive sleep apnea) Surgical History History of orchiectomy Social History Smoking and tobacco status: never smoked Second hand smoke exposure: Yes Alcohol intake: never Substance/Drug Use: never Lives independently: Yes Household members: spouse Marital status: Current occupational status: employed Vitals/I&O/Wt Last Vital Signs Temp 98.0 F 08/19/22 10:42 Pulse 112 H 08/19/22 16:50 Resp 18 08/19/22 10:42 BP 144/88 08/19/22 16:50 Pulse Ox 96 08/19/22 16:50 O2 Del Method Room Air 08/19/22 11:44 08/19/22 08/19/22 08/19/22 06:59 14:59 22:59 Intake Total 35 / 35 Balance 35 / 35 Weight last 48 hrs Weight 335 lb Physical Exam Narrative: GENERAL: The patient is alert and oriented times three. Not in any acute distress. Moderately obese HEENT: No significant pallor, icterus or lymphadenopathy.Oral cavity: There are no mucous membrane lesions. NECK: Trachea appears to be central. No masses noted. No JVD or thyromegaly appreciated. RESPIRATORY: Chest is symmetrical. No intercostals muscle retraction or any accessory muscle activation. There is no chest wall tenderness. Breath sounds are heard bilaterally. No rales or rhonchi heard. No evidence of any consolidation. [] BREASTS: Deferred. [] HEART: The heart sounds are normal. No S3 or S4. [No significant murmurs] []. No pericardial rub ABDOMEN: Moderate tenderness in the epigastric area and the right subcostal region. No rebound tenderness. Bowels are normal here. : Deferred. [] RECTAL: Deferred. [] LYMPHATIC: No lymphadenopathy noted in the neck. EXTREMITIES: No edema or cyanosis. No clubbing. MUSCULOSKELETAL: No acute joint deformities or swelling SKIN: There are no significant rashes or ecchymosis NEUROPSYCHIATRIC: The patient is alert and oriented x3. Appears to be in a good mood. No tremors or rigidity noted. [] Data 08/19/22 11:42 08/19/22 11:42 Other Labs: Laboratory Last Values WBC 26.2 10^3/uL (4.0-10.0) H 08/19/22 11:42 RBC 4.88 10^6/uL (4.1-5.3) 08/19/22 11:42 Hgb 13.5 g/dL (11.7-16.6) 08/19/22 11:42 Hct 41.7 % (42.0-52.0) L 08/19/22 11:42 MCV 85.5 fl (80-94) 08/19/22 11:42 MCH 27.7 pg (28.0-34.0) L 08/19/22 11:42 MCHC 32.4 g/dL (30.0-36.0) 08/19/22 11:42 RDW 16.3 % (12.1-15.1) H 08/19/22 11:42 Plt Count 280 10^3/cmm (130-400) 08/19/22 11:42 MPV 9.7 fL (7.4-10.4) 08/19/22 11:42 Neut % (Auto) 81.4 % 08/19/22 11:42 Lymph % (Auto) 6.8 % 08/19/22 11:42 Custer % (Auto) 9.9 % 08/19/22 11:42 Eos % (Auto) 0.0 % 08/19/22 11:42 Baso % (Auto) 0.3 % 08/19/22 11:42 Neut # (Auto) 21.35 10^3/uL (1.8-7.7) H 08/19/22 11:42 Lymph # (Auto) 1.8 10^3/uL (0.8-4.8) 08/19/22 11:42 [place]uster # (Auto) 2.6 10^3/uL (0.2-0.9) H 08/19/22 11:42 Eos # (Auto) 0.0 10^3/uL (0.0-0.8) 08/19/22 11:42 Baso # (Auto) 0.1 10^3/uL (0.0-0.1) 08/19/22 11:42 Nucleated RBC % (auto) 0 % 08/19/22 11:42 Nucleated RBCs # 0.0 /100WBC 08/19/22 11:42 Sodium 133 mmol/L (136-145) L 08/19/22 11:42 Potassium 4.4 mmol/L (3.5-5.1) 08/19/22 11:42 Chloride 95 mmol/L (98-107) L 08/19/22 11:42 Carbon Dioxide 25 mmol/L (22-29) 08/19/22 11:42 Anion Gap 17.4 (5-19) 08/19/22 11:42 BUN 19 mg/dL (6-20) 08/19/22 11:42 Creatinine 1.1 mg/dL (0.7-1.2) 08/19/22 11:42 GFR Calculation 69.0 mL/min (90-130) L 08/19/22 11:42 Glucose 244 mg/dL (65-115) H 08/19/22 11:42 Calculated Osmolality 286 mOsm/kg (285-295) 08/19/22 11:42 Lactic Acid 2.0 mmol/L (0.5-2.2) 08/19/22 11:42 Calcium 9.4 mg/dL (8.5-10.5) 08/19/22 11:42 Total Bilirubin 0.9 mg/dL (0.15-1.2) 08/19/22 11:42 AST 19 U/L (0-40) 08/19/22 11:42 ALT 33 U/L (0-41) 08/19/22 11:42 Alkaline Phosphatase 145 U/L (40-130) H 08/19/22 11:42 Troponin T Baseline 15 ng/L (0-15) 08/19/22 11:42 Troponin T 120 Minute 15.08 ng/L (0-15) H 08/19/22 14:18 Delta Troponin T 0.08 ABS# (0-10) 08/19/22 14:18 Total Protein 7.5 g/dL (6.6-8.7) 08/19/22 11:42 Albumin 3.9 g/dL (3.5-5.2) 08/19/22 11:42 Globulin 3.6 g/dL (1.3-4.6) 08/19/22 11:42 Lipase 14 U/L (13-60) 08/19/22 11:42 Urine Color Yellow (Yellow) 08/19/22 11:56 Urine Appearance Clear (CLEAR) 08/19/22 11:56 Urine pH 6.5 (5-7) 08/19/22 11:56 Ur Specific [place] 1.015 (1.005-1.030) 08/19/22 11:56 Urine Protein Trace (Negative) 08/19/22 11:56 Urine Glucose (UA) 4+ (Normal) H 08/19/22 11:56 Urine Ketones Negative (Negative) 08/19/22 11:56 Urine Blood Neg (Negative) 08/19/22 11:56 Urine Nitrate Negative (Negative) 08/19/22 11:56 Urine Bilirubin Neg (Negative) 08/19/22 11:56 Urine Urobilinogen 1 mg/dL (Negative) H 08/19/22 11:56 Ur Leukocyte Esterase Negative (Negative) 08/19/22 11:56 Urine RBC None /hpf (0-2) 08/19/22 11:56 Urine WBC Rare /hpf (0-5) 08/19/22 11:56 Ur Squamous Epith Cells Rare /hpf (0-5) 08/19/22 11:56 Amorphous Sediment Not Reportable 08/19/22 11:56 Urine Bacteria None /hpf (NONE) 08/19/22 11:56 CXR: My impression: Normal cardia silhouette within no lung infiltrates. No acute pathology mpi: My impression: 04/04/2019 #1.? Myocardial perfusion imaging revealing a small area of reversible defect ?in the apical lateral region, suggestive ischemia in the distal circumflex ?artery? region. .? However in view of the inconsistency, the reliability of ?this finding is very questionable ?#2.? Normal LV ejection fraction of 61% ?#3.? LV wall motion analysis revealing no gross wall motion abnormality is. ?#4.? LV volume, upper limit of normal. EKG 1: My Interpretation: Normal sinus rhythm with a normal ST-T's. Normal SC and QRS duration. A&P Assessment and plan (1) Exertional shortness of breath: The patient's shortness of breath with exertion could be multifactorial. The obesity, recent weight gain of 50 to 60 pounds, obstructive sleep apnea, are contributing factors. Possibility of coronary ischemia causing this cannot be excluded but my clinical suspicion may be low. He has no EKG evidence of ischemia. No evidence of myocardial injury. An echocardiogram was done this evening. If the echocardiogram does not reveal any significant wall motion abnormalities, patient may not require any further cardiac work-up at this point. (2) Acute cholecystitis: This patient has features of acute cholecystitis. (3) HTN (hypertension): The blood pressure is of stage II.. The antihypertensive medications need to be optimized. (4) Diabetes: Aggressive management of the diabetes would be appropriate. (5) CAMERON (obstructive sleep apnea): Patient may be continued on the CPAP. (6) Dyslipidemia: May continue on the current medications. Plan The echocardiogram was reviewed. The LV ejection fraction was within normal limits. No significant wall motion normalities were noted. Based on the current information, the patient's overall cardiovascular risk with the proposed surgical procedure is minimal to moderate. If he continues to remain stable hemodynamically, may go ahead with the surgical intervention. Thank you for the opportunity to evaluate this patient make these recommendations Consult Attestations Medical Necessity Statement: Patient requires continued hospital stay for close monitoring and further management Coding Level of Care Code 08906 Diagnoses Exertional shortness of breath R06.02 Acute cholecystitis K81.0 HTN (hypertension) I10 Diabetes E11.9 CAMERON (obstructive sleep apnea) G47.33 Dyslipidemia E78.5
[2022-08-19] MEDS: heparin 5,000 unit/mL INJ 1 mL 5000 UNIT SUBCUT (18:15)
[2022-08-19] MEDS: D5-NS 0.45% + KCL 20 mEq 20 MEQ/1,000 ML BAG 125 MEQ IV (18:16)
[2022-08-19 21:49] LABS: Glucose Point of Care 240 mg/dL (70-110)
[2022-08-19] MEDS: PARoxetine 20 mg Tablet 30 MG PO (21:51)
[2022-08-19] MEDS: atorvastatin 40 mg Tablet PO (21:52)
[2022-08-19] MEDS: insulin glargine 100 units/1 mL 40 UNIT SUBCUT (21:57)
[2022-08-20] VITALS (9 sets, daily range): BP systolic 121–147; BP diastolic 74–89; PULSE 89–97; RESP 15–20; TEMP 36.4–37.3; O2SAT 93–96
[2022-08-20] MEDS: morphine 4 mg/mL SDV 1 mL IVP ×3 (00:17→21:19)
[2022-08-20] MEDS: D5-NS 0.45% + KCL 20 mEq 20 MEQ/1,000 ML BAG 125 MEQ IV (01:57)
[2022-08-20] MEDS: famotidine 20 mg Tablet PO (04:59)
[2022-08-20] MEDS: piperacillin-tazobactam 3.375 GM in sodium chloride 0.9% (plus) 50 ML IV ×2 (04:59→14:26)
[2022-08-20] MEDS: heparin 5,000 unit/mL INJ 1 mL 5000 UNIT SUBCUT ×2 (04:59→18:47)
[2022-08-20 05:45] LABS: Basophils # 0.1 10^3/uL (0.0-0.1); Basophils % 0.3 %; Hematocrit 40.3 % (42.0-52.0); Hemoglobin 12.6 g/dL (11.7-16.6); Lymphocytes # 1.6 10^3/uL (0.8-4.8); Lymphocytes % 6.6 %; Mean Corpuscular HGB Conc 31.3 g/dL (30.0-36.0); Mean Corpuscular Volume 86.5 fl (80-94); Mean Platelet Volume 9.9 fL (7.4-10.4); Monocytes # 2.4 10^3/uL (0.2-0.9); Monocytes % 9.7 %; Neutrophils # 20.04 10^3/uL (1.8-7.7); Neutrophils % 82.1 %; Nucleated Red Blood Cells % 0 %; Platelet Count 244 10^3/cmm (130-400); Red Blood Count 4.66 10^6/uL (4.1-5.3); Red Cell Distribution Width 16.2 % (12.1-15.1); White Blood Count 24.4 10^3/uL (4.0-10.0)
[2022-08-20 06:01] LABS: Alanine Aminotransferase 51 U/L (0-41); Albumin Level 3.4 g/dL (3.5-5.2); Alkaline Phosphatase 153 U/L (40-130); Anion Gap 16.7 (5-19); Aspartate Amino Transferase 24 U/L (0-40); Blood Urea Nitrogen 19 mg/dL (6-20); Calcium 8.9 mg/dL (8.5-10.5); Carbon Dioxide 23 mmol/L (22-29); Chloride 97 mmol/L (98-107); Globulin 3.7 g/dL (1.3-4.6); Glucose 258 mg/dL (65-115); Osmolality Calculated 285 mOsm/kg (285-295); Potassium 4.7 mmol/L (3.5-5.1); Sodium 132 mmol/L (136-145); Total Bilirubin 0.8 mg/dL (0.15-1.2); Total Protein 7.1 g/dL (6.6-8.7)
[2022-08-20 06:18] LABS: Glucose Point of Care 268 mg/dL (70-110)
[2022-08-20] MEDS: aspirin 81 mg EC Tablet PO (08:04)
--- NOTE | 2022-08-20 10:08 | PM.HP ---
Providers/Chief Complaint Admitting Physician: Corky Hunt Primary Care Provider: Nba Arreaga Chief Complaint: abd pains History of Present Illness Anthony Littlejohn is a 56 year old male, with past medical history as below, who presented to the hospital with right upper quadrant abdominal pain radiating to his back and nausea. Eating makes the pain worse. Nothing makes pain better. He denies any emesis. Denies any diarrhea or constipation. Denies any hematochezia and/or melena. Pain has been present for 5 days now and gradually got worse until he presented to the emergency room. CT of the abdomen pelvis shows inflammation around the gallbladder extending to the duodenum. Review of Systems General: Reports: 10 or more systems reviewed and unremarkable except in HPI and below Medications/Allergies Home Medications Medication Instructions Recorded Confirmed Last Taken Type amlodipine 5 mg tablet 5 mg PO QAM 08/19/22 08/19/22 2 Days Ago History ~08/17/22 aspirin 81 mg tablet,delayed 81 mg PO DAILY 08/19/22 08/19/22 2 Days Ago History release ~08/17/22 atorvastatin 40 mg tablet 40 mg PO BEDTIME 08/19/22 08/19/22 2 Days Ago History ~08/17/22 cetirizine 10 mg tablet 10 mg PO QAM 08/19/22 08/19/22 2 Days Ago History ~08/17/22 cholecalciferol (vitamin D3) 1,250 See Rx Instructions .Route .COMPLEX 08/19/22 08/19/22 Unknown History mcg (50,000 unit) capsule famotidine 20 mg tablet 20 mg PO QAM 08/19/22 08/19/22 2 Days Ago History ~08/17/22 hydrochlorothiazide 25 mg tablet 25 mg PO QAM 08/19/22 08/19/22 2 Days Ago History ~08/17/22 insulin degludec 200 unit/mL (3 See Rx Instructions .Route .COMPLEX 08/19/22 08/19/22 2 Days Ago History mL) subcutaneous pen (Tresiba ~08/17/22 FlexTouch U-200 insulin) insulin lispro 200 unit/mL (3 mL) See Rx Instructions .Route .COMPLEX 08/19/22 08/19/22 2 Days Ago History subcutaneous pen (Humalog KwikPen ~08/17/22 U-200 Insulin) naproxen sodium 220 mg tablet 440 mg PO BEDTIME 08/19/22 08/19/22 2 Days Ago History (Aleve) ~08/17/22 paroxetine HCl 30 mg tablet 30 mg PO BEDTIME 08/19/22 08/19/22 2 Days Ago History ~08/17/22 Allergies Allergy/AdvReac Type Severity Reaction Status Date / Time chlorpromazine Allergy Intermediate Unknown Verified 02/26/22 15:12 dexamethasone Allergy Unknown Unknown Verified 02/26/22 15:12 erythromycin base Allergy Unknown Unknown Verified 02/26/22 15:12 ibuprofen Allergy Unknown Unknown Verified 02/26/22 15:12 metoclopramide Allergy Unknown Unknown Verified 02/26/22 15:12 pantoprazole Allergy Unknown Unknown Verified 02/26/22 15:12 acetaminophen [From Vicodin] Allergy Unknown Verified 02/26/22 15:12 hydrocodone [From Vicodin] Allergy Unknown Verified 02/26/22 15:12 methylpred-80 Allergy Unknown Unknown Uncoded 02/26/22 15:12 PFSH Acute PFSH: Medical History Allergic rhinitis due to allergen Diabetes HTN (hypertension) Hx of testicular cancer CAMERON (obstructive sleep apnea) Surgical History History of orchiectomy Social History Smoking and tobacco status: never smoked Second hand smoke exposure: Yes Alcohol intake: never Substance/Drug Use: never Lives independently: Yes Household members: spouse Marital status: Current occupational status: employed Vitals/I&O/Wt Last Vital Signs Temp 97.5 F L 08/20/22 11:54 Pulse 94 08/20/22 15:54 Resp 15 08/20/22 15:54 BP 123/80 08/20/22 15:54 Pulse Ox 93 08/20/22 15:54 O2 Del Method Room Air 08/20/22 15:54 08/20/22 08/20/22 08/20/22 06:59 14:59 22:59 Intake Total 1010.417 / 1045.417 50 / 50 240 / 290 Balance 1010.417 / 1045.417 50 / 50 240 / 290 Weight last 48 hrs Weight 335 lb Weight 335 lb Physical Exam Narrative: General : Patient is well developed , no acute distress, oriented x3 Head : Normal cephalic, a-traumatic. Ears : Pinnae and external canal are normal. Hearing is normal. Eyes : PERRLA, Sclera and injection are normal. No conjunctival discharge. Nose : Mucous membranes are without erythema. Throat : buccal mucosa is normal, gums are without significant recession or hypertrophy. Lungs : Equal chest rise bilaterally, no use of accessory muscles, trachea is midline. Cor : Rate and rhythm are normal. Abdomen : Soft, ND, tender to palpation right upper quadrant, negative Hodge's, no g/r/m Extremities : No edema, no cyanosis or clubbing, dorsalis pedis pulses are present bilaterally, non-tender to palpation of calves. Upper extremities are normal bilaterally. Back : non-tender to palpation, no CVA tenderness. Neuro : CN II - XII intact, Upper and lower extremities have equal and full strength Data 08/20/22 05:36 08/20/22 05:36 A&P Assessment and plan (1) Acute cholecystitis: Plan He is outside the 72-hour phan window for acute cholecystectomy. When attempt to give him antibiotics and cold on his gallbladder with the intent of performing an interval cholecystectomy in 6 to 8 weeks. If his symptoms do not improve we will have to proceed with cholecystectomy during this hospital visit. Attestations Medical Necessity Statement*: Patient requires multiple nights in the hospital for IV antibiotics to treat his acute cholecystitis. He may require cholecystectomy. Coding Level of Care Code Acute Code for [facility] Diagnoses Acute cholecystitis K81.0
--- NOTE | 2022-08-20 10:42 | PC.NURSE ---
Patient's family was questioning the current plan for treatment, patient was in the ER on 08/19 and consulted with cardiology for surgical clearance. Dr. Hunt rounded this morning and informed the family that it would be Dr. Polanco's ultimate decision to go to surgery if needed. I spoke with Dr. Polanco and he is in procedures in the GI Lab this morning and will consult with patient likely this afternoon. I informed the patient, his spouse, and two daughters of this information and they verbalize understanding. No further questions or concerns at this time.
[2022-08-20 10:59] LABS: Glucose Point of Care 271 mg/dL (70-110)
[2022-08-20] MEDS: insulin lispro 100 unit/1 mL SUBCUT ×3 (14:30→20:36)
--- NOTE | 2022-08-20 16:20 | P.PN_ITS ---
Subjective Subjective: Pain is feeling little better. Currently is afebrile. Was seen by general surgery. Decided to continue the antibiotic and other supportive measures for the time being. Reevaluate for surgery in the morning. No chest pain or unusual shortness of breath. Vital signs remained stable. Blood pressure is fairly under control. Medications: Medication Review Details: Current Medications Aspirin (Aspirin 81 Mg Ec Tablet) 81 mg PO DAILY [facility] Last Admin: 08/20/22 08:04 Dose: 81 mg Atorvastatin Calcium (Atorvastatin 40 Mg Tablet) 40 mg PO BEDTIME [facility] Last Admin: 08/19/22 21:52 Dose: 40 mg Dextrose (Dextrose 50% Syringe 50 Ml) 50 ml IVP PRN PRN; Protocol PRN Reason: hypoglycemia protocol Dextrose (Dextrose 50% Syringe 50 Ml) 25 ml IVP ONCE PRN; Protocol PRN Reason: hypoglycemia protocol Famotidine (Famotidine 20 Mg Tablet) 20 mg PO QAM [facility] Last Admin: 08/20/22 04:59 Dose: 20 mg Glucagon (Glucagon 1 Mg/Ml Inj 1 Ml) 1 mg IM ONCE PRN; Protocol PRN Reason: Adult Acute Hypoglycemia Prot. Heparin Sodium (Porcine) (Heparin 5,000 Unit/Ml Inj 1 Ml) 5,000 unit SUBCUT Q12H [facility] Last Admin: 08/20/22 04:59 Dose: 5,000 unit Potassium Chloride/Dextrose/Sod Cl (D5-Ns 0.45% + Kcl 20 Meq) 20 meq in 1,000 mls @ 125 mls/hr IV .Q8H [facility] Last Admin: 08/20/22 01:57 Dose: 125 mls/hr Piperacillin Sod/Tazobactam (Sod 3.375 gm/ Sodium Chloride) 50 mls @ 12.5 mls/hr IV Q8H [facility]; Protocol Last Admin: 08/20/22 14:26 Dose: 12.5 mls/hr Dextrose (D5w) 500 mls @ 100 mls/hr IV ONCE PRN; Protocol PRN Reason: Adult Acute Hypoglycemia Prot Insulin Human Lispro (Insulin Lispro 100 Unit/1 Ml) 0 unit SUBCUT Q6H [facility]; Protocol Last Admin: 08/20/22 14:30 Dose: 10 unit Morphine Sulfate (Morphine 4 Mg/Ml Sdv 1 Ml) 4 mg IVP Q4H PRN PRN Reason: SEVERE PAIN Last Admin: 08/20/22 08:04 Dose: 4 mg Non-Formulary Medication (Tresiba U-200) 20 each SUBCUT QAM ALLAN Non-Formulary Medication (Tresiba U-200) 50 each SUBCUT BEDTIME ALLAN Ondansetron HCl (Ondansetron 2 Mg/Ml Sdv 2 Ml) 4 mg IVP Q8H PRN PRN Reason: vomiting, or N/V if npo Paroxetine HCl (Paroxetine 20 Mg Tablet) 30 mg PO BEDTIME ALLAN Last Admin: 08/19/22 21:51 Dose: 30 mg Vitals/I&O/Wt Last Vital Signs Temp 97.5 F L 08/20/22 11:54 Pulse 94 08/20/22 15:54 Resp 15 08/20/22 15:54 BP 123/80 08/20/22 15:54 Pulse Ox 93 08/20/22 15:54 O2 Del Method Room Air 08/20/22 15:54 08/20/22 08/20/22 08/20/22 06:59 14:59 22:59 Intake Total 1010.417 / 1045.417 50 / 50 Balance 1010.417 / 1045.417 50 / 50 Weight last 48 hrs Weight 335 lb Weight 335 lb Physical Exam Narrative: GENERAL: The patient is alert and oriented times three. Not in any acute distress. Moderately obese HEENT: No significant pallor, icterus or lymphadenopathy.Oral cavity: There are no mucous membrane lesions. NECK: Trachea appears to be central. No masses noted. No JVD or thyromegaly appreciated. RESPIRATORY: Chest is symmetrical. No intercostals muscle retraction or any accessory muscle activation. There is no chest wall tenderness. Breath sounds are heard bilaterally. No rales or rhonchi heard. No evidence of any consolidation. BREASTS: Deferred. HEART: The heart sounds are normal. No S3 or S4. No significant murmurs. No pericardial rub ABDOMEN: Moderate tenderness in the epigastric area and the right subcostal region. No rebound tenderness. Bowels are normal here. : Deferred. RECTAL: Deferred. LYMPHATIC: No lymphadenopathy noted in the neck. EXTREMITIES: No edema or cyanosis. No clubbing. MUSCULOSKELETAL: No acute joint deformities or swelling SKIN: There are no significant rashes or ecchymosis NEUROPSYCHIATRIC: The patient is alert and oriented x3. Appears to be in a good mood. No tremors or rigidity noted. Data 08/20/22 05:36 08/20/22 05:36 Other Labs: Laboratory Last Values WBC 24.4 10^3/uL (4.0-10.0) H 08/20/22 05:36 RBC 4.66 10^6/uL (4.1-5.3) 08/20/22 05:36 Hgb 12.6 g/dL (11.7-16.6) 08/20/22 05:36 Hct 40.3 % (42.0-52.0) L 08/20/22 05:36 MCV 86.5 fl (80-94) 08/20/22 05:36 MCH 27.0 pg (28.0-34.0) L 08/20/22 05:36 MCHC 31.3 g/dL (30.0-36.0) 08/20/22 05:36 RDW 16.2 % (12.1-15.1) H 08/20/22 05:36 Plt Count 244 10^3/cmm (130-400) 08/20/22 05:36 MPV 9.9 fL (7.4-10.4) 08/20/22 05:36 Neut % (Auto) 82.1 % 08/20/22 05:36 Lymph % (Auto) 6.6 % 08/20/22 05:36 Whitley % (Auto) 9.7 % 08/20/22 05:36 Eos % (Auto) 0.0 % 08/20/22 05:36 Baso % (Auto) 0.3 % 08/20/22 05:36 Neut # (Auto) 20.04 10^3/uL (1.8-7.7) H 08/20/22 05:36 Lymph # (Auto) 1.6 10^3/uL (0.8-4.8) 08/20/22 05:36 Whitley # (Auto) 2.4 10^3/uL (0.2-0.9) H 08/20/22 05:36 Eos # (Auto) 0.0 10^3/uL (0.0-0.8) 08/20/22 05:36 Baso # (Auto) 0.1 10^3/uL (0.0-0.1) 08/20/22 05:36 Nucleated RBC % (auto) 0 % 08/20/22 05:36 Nucleated RBCs # 0.0 /100WBC 08/20/22 05:36 Sodium 132 mmol/L (136-145) L 08/20/22 05:36 Potassium 4.7 mmol/L (3.5-5.1) 08/20/22 05:36 Chloride 97 mmol/L (98-107) L 08/20/22 05:36 Carbon Dioxide 23 mmol/L (22-29) 08/20/22 05:36 Anion Gap 16.7 (5-19) 08/20/22 05:36 BUN 19 mg/dL (6-20) 08/20/22 05:36 Creatinine 1.1 mg/dL (0.7-1.2) 08/20/22 05:36 GFR Calculation 69.0 mL/min (90-130) L 08/20/22 05:36 Glucose 258 mg/dL (65-115) H 08/20/22 05:36 POC Glucose 252 mg/dL (70-110) H 08/20/22 20:26 Calculated Osmolality 285 mOsm/kg (285-295) 08/20/22 05:36 Lactic Acid 2.0 mmol/L (0.5-2.2) 08/19/22 11:42 Calcium 8.9 mg/dL (8.5-10.5) 08/20/22 05:36 Total Bilirubin 0.8 mg/dL (0.15-1.2) 08/20/22 05:36 AST 24 U/L (0-40) 08/20/22 05:36 ALT 51 U/L (0-41) H 08/20/22 05:36 Alkaline Phosphatase 153 U/L (40-130) H 08/20/22 05:36 Troponin T Baseline 15 ng/L (0-15) 08/19/22 11:42 Troponin T 120 Minute 15.08 ng/L (0-15) H 08/19/22 14:18 Delta Troponin T 0.08 ABS# (0-10) 08/19/22 14:18 Total Protein 7.1 g/dL (6.6-8.7) 08/20/22 05:36 Albumin 3.4 g/dL (3.5-5.2) L 08/20/22 05:36 Globulin 3.7 g/dL (1.3-4.6) 08/20/22 05:36 Lipase 14 U/L (13-60) 08/19/22 11:42 Urine Color Yellow (Yellow) 08/19/22 11:56 Urine Appearance Clear (CLEAR) 08/19/22 11:56 Urine pH 6.5 (5-7) 08/19/22 11:56 Ur Specific [place] 1.015 (1.005-1.030) 08/19/22 11:56 Urine Protein Trace (Negative) 08/19/22 11:56 Urine Glucose (UA) 4+ (Normal) H 08/19/22 11:56 Urine Ketones Negative (Negative) 08/19/22 11:56 Urine Blood Neg (Negative) 08/19/22 11:56 Urine Nitrate Negative (Negative) 08/19/22 11:56 Urine Bilirubin Neg (Negative) 08/19/22 11:56 Urine Urobilinogen 1 mg/dL (Negative) H 08/19/22 11:56 Ur Leukocyte Esterase Negative (Negative) 08/19/22 11:56 Urine RBC None /hpf (0-2) 08/19/22 11:56 Urine WBC Rare /hpf (0-5) 08/19/22 11:56 Ur Squamous Epith Cells Rare /hpf (0-5) 08/19/22 11:56 Amorphous Sediment Not Reportable 08/19/22 11:56 Urine Bacteria None /hpf (NONE) 08/19/22 11:56 Nutritional history 67 A&P Assessment and plan (1) Exertional shortness of breath: Currently stable. No evidence of heart failure. Troponin T's are negative for Franco injury. I may go to do a BNP to further evaluate. (2) Acute cholecystitis: This patient has features of acute cholecystitis. White cell count still remains elevated (3) HTN (hypertension): The blood pressure seems to be getting under control. (4) Diabetes: Aggressive management of the diabetes would be appropriate. (5) CAMERON (obstructive sleep apnea): Patient may be continued on the CPAP. (6) Dyslipidemia: May continue on the current medications. Plan BNP on the blood in the lab. May continue on the current medications. No other current specific intervention from a cardiac standpoint at this time. Attestations Medical Necessity Statement*: Deferred to the primary Coding Level of Care Code 71029 Diagnoses Exertional shortness of breath R06.02 Acute cholecystitis K81.0 HTN (hypertension) I10 Diabetes E11.9 CAMERON (obstructive sleep apnea) G47.33 Dyslipidemia E78.5
[2022-08-20 18:29] LABS: Glucose Point of Care 194 mg/dL (70-110)
--- NOTE | 2022-08-20 20:07 | P.PN_ITS ---
Subjective Subjective: Abdominal pain. No chest pain. Vitals/I&O/Wt Last Vital Signs Temp 99.2 F 08/20/22 19:49 Pulse 95 08/20/22 19:49 Resp 18 08/20/22 19:49 BP 134/89 08/20/22 19:49 Pulse Ox 96 08/20/22 19:49 O2 Del Method Room Air 08/20/22 15:54 08/20/22 08/20/22 08/20/22 06:59 14:59 22:59 Intake Total 1010.417 / 1045.417 50 / 50 290 / 340 Balance 1010.417 / 1045.417 50 / 50 290 / 340 Weight last 48 hrs Weight 151.953 kg Weight 151.953 kg Physical Exam Narrative: Family at bedside. Const: COMMON NORMALS: patient oriented x3 and alert GENERAL APPEARANCE: cooperative NUTRITIONAL APPEARANCE: obese ORIENTATION/CONSCIOUSNESS: Yes awake HENMT: COMMON NORMALS: oropharynx normal Neck/C-Spine: COMMON NORMALS: no JVD Resp: COMMON NORMALS: normal respiratory effort and clear to auscultation bilaterally AUSCULTATION: clear to auscultation bilaterally Cardio: COMMON NORMALS: no JVD, regular rhythm, S1 normal heart sound present, S2 normal heart sound present and No murmurs present (Cardio) RHYTHM: regular rhythm HEART SOUNDS: S1 normal heart sound present and S2 normal heart sound present GI: PALPATION: Yes Tenderness to palpation present (GI) Extremity: COMMON NORMALS: no joint enlargement and no pedal edema Neuro: COMMON NORMALS: patient oriented x3 and moves all extremities SENSORIUM/ORIENTATION: Yes alert Skin: COMMON NORMALS: no rashes or lesions noted GENERAL SKIN EXAM: no rashes or lesions noted Data 08/20/22 05:36 08/20/22 05:36 A&P Assessment and plan (1) Acute cholecystitis: Surgery documentation noted. Since he is outside 72-hour window no surgical intervention at present time unless symptoms not improving. Continue IV antibiotics, IV hydration. Cardiac evaluation noted, discussed with cardiology. TTE with normal EF, grade 1 diastolic dysfunction. No regional wall motion abnormality. No additional work-up per cardiology in case surgery were needed. Leukocytosis slightly better 24.4. Blood cultures so far without results, follow-up. Lipase was not elevated 14. UA unremarkable. Again requiring IV morphine for pain. (2) Duodenitis: Continue PPI. Stop naproxen. Consider follow-up with endoscopy. (3) Exertional chest pain: Cardiac evaluation noted, discussed with cardiology. TTE with normal EF, grade 1 diastolic dysfunction. No regional wall motion abnormality. No additional work-up per cardiology in case surgery were needed. His provides history, he forgot to mention that he has been scheduled for stress test on the outpatient side by primary provider. Baseline troponin is normal. No chest pain or pressure at rest. No CHF symptoms. Continue aspirin. Risk factors for CAD include family history, father had [facility] at 45, secondhand smoke exposure, morbid obesity, DM, HTN, HLD. (4) Exertional shortness of breath: Discussed with him and family aside from follow-up with regards to stress test would benefit from pulmonary function testing. Denies any known history of lung disease. History of secondhand smoke exposure from his parents. He does state that he has gained quite a bit of weight, as well as that he has been quite inactive and feels he has become out of shape. (5) CAMERON (obstructive sleep apnea): Wears nightly CPAP. (6) HTN (hypertension): Blood pressure is better, continue to monitor (7) Diabetes: As diet has been resumed by surgery, insulin is resumed closer to his usual dosi ng. As per his he has intolerance to Lantus but they have his Tresiba. This was given to the pharmacy and resumed as nonformulary. Resumed also Premeal Humalog and sliding scale. Monitor glucose. Attestations Medical Necessity Statement*: Continue admission for assessment management of acute cholecystitis. Diagnoses Acute cholecystitis K81.0 Duodenitis K29.80 Exertional chest pain R07.9 Exertional shortness of breath R06.02 CAMERON (obstructive sleep apnea) G47.33 HTN (hypertension) I10 Diabetes E11.9
[2022-08-20] MEDS: NON-FORMULARY MEDICATION 80 EACH SUBCUT (20:26)
[2022-08-20] MEDS: piperacillin-tazobactam 3.375 GM in sodium chloride 0.9% (plus) 50 ML 3.37 GM IV (20:30)
[2022-08-20] MEDS: atorvastatin 40 mg Tablet PO (20:30)
[2022-08-20] MEDS: PARoxetine 20 mg Tablet 30 MG PO (20:30)
[2022-08-20 20:32] LABS: Glucose Point of Care 252 mg/dL (70-110)
[2022-08-21] VITALS (8 sets, daily range): BP systolic 109–144; BP diastolic 71–83; PULSE 85–97; RESP 15–18; TEMP 36.7–37.4; O2SAT 93–97
[2022-08-21] MEDS: famotidine 20 mg Tablet PO (05:53)
[2022-08-21] MEDS: piperacillin-tazobactam 3.375 GM in sodium chloride 0.9% (plus) 50 ML 3.37 GM IV (05:53)
[2022-08-21] MEDS: heparin 5,000 unit/mL INJ 1 mL 5000 UNIT SUBCUT ×2 (05:53→17:52)
[2022-08-21 05:57] LABS: Basophils # 0.1 10^3/uL (0.0-0.1); Basophils % 0.5 %; Eosinophils # 0.1 10^3/uL (0.0-0.8); Eosinophils % 0.4 %; Hematocrit 42.7 % (42.0-52.0); Hemoglobin 13.4 g/dL (11.7-16.6); Lymphocytes # 2.1 10^3/uL (0.8-4.8); Lymphocytes % 10.1 %; Mean Corpuscular HGB Conc 31.4 g/dL (30.0-36.0); Mean Corpuscular Hemoglobin 27.2 pg (28.0-34.0); Mean Corpuscular Volume 86.8 fl (80-94); Mean Platelet Volume 9.4 fL (7.4-10.4); Monocytes # 1.5 10^3/uL (0.2-0.9); Monocytes % 7.4 %; Neutrophils # 16.34 10^3/uL (1.8-7.7); Neutrophils % 79.8 %; Nucleated Red Blood Cells % 0 %; Platelet Count 267 10^3/cmm (130-400); Red Blood Count 4.92 10^6/uL (4.1-5.3); Red Cell Distribution Width 16.4 % (12.1-15.1); White Blood Count 20.5 10^3/uL (4.0-10.0)
[2022-08-21 06:12] LABS: Alanine Aminotransferase 63 U/L (0-41); Albumin Level 3.7 g/dL (3.5-5.2); Alkaline Phosphatase 211 U/L (40-130); Anion Gap 15.5 (5-19); Aspartate Amino Transferase 28 U/L (0-40); Blood Urea Nitrogen 18 mg/dL (6-20); Calcium 9.3 mg/dL (8.5-10.5); Carbon Dioxide 25 mmol/L (22-29); Chloride 97 mmol/L (98-107); Globulin 3.9 g/dL (1.3-4.6); Glucose 210 mg/dL (65-115); Osmolality Calculated 284 mOsm/kg (285-295); Potassium 4.5 mmol/L (3.5-5.1); Sodium 133 mmol/L (136-145); Total Bilirubin 0.5 mg/dL (0.15-1.2); Total Protein 7.6 g/dL (6.6-8.7)
[2022-08-21 06:21] LABS: Glucose Point of Care 195 mg/dL (70-110)
[2022-08-21] MEDS: morphine 4 mg/mL SDV 1 mL IVP ×2 (06:28→13:29)
[2022-08-21] MEDS: aspirin 81 mg EC Tablet PO (08:32)
--- NOTE | 2022-08-21 08:33 | PM.PN ---
Subjective Subjective: Patient is 56 and was admitted with acute cholecystitis. Attempts are being made to treat him with antibiotics and then have elective cholecystectomy. Cardiology was asked to see him for preoperative evaluation. He has been stable. His echo is unremarkable. He is having very little pain now. He is diet is being advanced. Vitals/I&O/Wt Last Vital Signs Temp 98.1 F 08/21/22 08:00 Pulse 85 08/21/22 08:00 Resp 16 08/21/22 08:00 BP 122/78 08/21/22 08:00 Pulse Ox 93 08/21/22 08:00 O2 Del Method Room Air 08/20/22 15:54 08/20/22 08/21/22 08/21/22 22:59 06:59 14:59 Intake Total 410 / 460 151.622 / 611.622 Balance 410 / 460 151.622 / 611.622 Weight last 48 hrs Weight 335 lb Weight 335 lb Physical Exam Narrative: GENERAL: In general he looks comfortable today HEENT: Exam within normal limits. NECK: Supple without jugular vein distention. The carotid upstroke is normal without bruits. BACK: Exam normal. LUNGS: Clear. HEART: Regular rate and rhythm. ABDOMEN: Benign without organomegaly or tenderness. EXTREMITIES: No edema. NEUROLOGIC: Exam normal. SKIN: Unremarkable. Data 08/21/22 05:48 08/21/22 05:48 A&P Assessment and plan (1) Dyslipidemia: (2) CAMERON (obstructive sleep apnea): (3) Acute cholecystitis: (4) HTN (hypertension): (5) Diabetes: Plan His cardiac status is stable. No other testing needs to be done. I will sign off. Call us if necessary. Attestations Medical Necessity Statement*: Hospitalization for acute cholecystitis. and Moderate Time for a total of 20 minutes, includes reviewing past or interval history, examining/interviewing patient, counseling patient/family/other support, updating patient/family/other support, discussing plan of care with staff, communicating with other healthcare providers and documenting encounter Diagnoses Dyslipidemia E78.5 CAMERON (obstructive sleep apnea) G47.33 Acute cholecystitis K81.0 HTN (hypertension) I10 Diabetes E11.9
[2022-08-21] MEDS: insulin lispro 100 unit/1 mL SUBCUT ×3 (08:34→21:11)
[2022-08-21] MEDS: insulin lispro 100 unit/1 mL 35 UNIT SUBCUT ×2 (08:35→12:06)
[2022-08-21 11:46] LABS: Glucose Point of Care 180 mg/dL (70-110)
--- NOTE | 2022-08-21 13:09 | P.PN_ITS ---
Subjective Subjective: Pain controlled and improving. Tolerating diet Vitals/I&O/Wt Last Vital Signs Temp 98.2 F 08/21/22 11:58 Pulse 88 08/21/22 11:58 Resp 17 08/21/22 11:58 BP 109/78 08/21/22 11:58 Pulse Ox 97 08/21/22 11:58 O2 Del Method Room Air 08/20/22 15:54 08/20/22 08/21/22 08/21/22 22:59 06:59 14:59 Intake Total 410 / 460 151.622 / 611.622 240 / 240 Balance 410 / 460 151.622 / 611.622 240 / 240 Weight last 48 hrs Weight 335 lb Physical Exam Narrative: General: No acute distress, awake alert and oriented x3 Abdomen: Soft, nondistended, tender to palpation right upper quadrant, negative Hodge's, no guarding rebound or masses Data 08/21/22 05:48 08/21/22 05:48 A&P Assessment and plan (1) Acute cholecystitis: Plan He is outside the 72-hour phan window for acute cholecystectomy. When attempt to give him antibiotics and cold on his gallbladder with the intent of performing an interval cholecystectomy in 6 to 8 weeks. If his symptoms do not improve we will have to proceed with cholecystectomy during this hospital visit. IV antibiotics A.m. labs N.p.o. after midnight Reassess in the morning Attestations Medical Necessity Statement*: Patient requires multiple nights in the hospital for IV antibiotics to treat his acute cholecystitis. He may require cholecystectomy. Coding Level of Care Code Acute Code for [facility] Diagnoses Acute cholecystitis K81.0
[2022-08-21] MEDS: piperacillin-tazobactam 3.375 GM in sodium chloride 0.9% (plus) 50 ML IV ×2 (14:10→21:09)
[2022-08-21 17:29] LABS: Glucose Point of Care 96 mg/dL (70-110)
--- NOTE | 2022-08-21 20:51 | P.PN_ITS ---
Subjective Subjective: He is showing someHe is showing some improvement. Still requiring IV pain medication is hurting less. Tolerating oral intake. Vitals/I&O/Wt Last Vital Signs Temp 99.4 F 08/21/22 19:50 Pulse 97 08/21/22 19:50 Resp 15 08/21/22 19:50 BP 144/79 08/21/22 19:50 Pulse Ox 95 08/21/22 19:50 O2 Del Method Room Air 08/21/22 19:50 08/21/22 08/21/22 08/21/22 06:59 14:59 22:59 Intake Total 151.622 / 611.622 627.915 / 627.915 530 / 1157.915 Balance 151.622 / 611.622 627.915 / 627.915 530 / 1157.915 Physical Exam Narrative: Family at bedside. Const: COMMON NORMALS: patient oriented x3 and alert GENERAL APPEARANCE: cooperative NUTRITIONAL APPEARANCE: obese ORIENTATION/CONSCIOUSNESS: Yes awake HENMT: COMMON NORMALS: oropharynx normal Neck/C-Spine: COMMON NORMALS: no JVD Resp: COMMON NORMALS: normal respiratory effort and clear to auscultation bila terally AUSCULTATION: clear to auscultation bilaterally Cardio: COMMON NORMALS: no JVD, regular rhythm, S1 normal heart sound present, S2 normal heart sound present and No murmurs present (Cardio) RHYTHM: regular rhythm HEART SOUNDS: S1 normal heart sound present and S2 normal heart sound present GI: COMMON NORMALS: Normal to inspection, nondistended, normoactive bowel sounds present and Soft to palpation PALPATION: Yes Soft to palpation and Yes Tenderness to palpation present (GI) OTHER: Tender RUQ, but less so than previously. Extremity: COMMON NORMALS: no joint enlargement and no pedal edema Neuro: COMMON NORMALS: patient oriented x3 and moves all extremities SENSORIUM/ORIENTATION: Yes alert Skin: COMMON NORMALS: no rashes or lesions noted GENERAL SKIN EXAM: no rashes or lesions noted Data 08/21/22 05:48 08/21/22 05:48 A&P Assessment and plan (1) Acute cholecystitis: He is showing improvement symptomatically, having less pain. Tolerating oral intake. WBC count with some improvement down to 20.5. Alk phos with some elevation to 111, but T. bili normal. Less right upper quadrant tender on exam Surgical documentation noted. Cardiac evaluation noted, discussed with cardiology. TTE with normal EF, grade 1 diastolic dysfunction. No regional wall motion abnormality. No additional work-up per cardiology in case surgery were needed. Repeat CBC, CMP. Again requiring IV morphine for pain. But somewhat less pain. Discussing oral options, he is allergic to a number of opioids, and they are reluctant to try tramadol. And oral morphine. (2) Duodenitis: Continue famotidine, at discharge switch to PPI. Stop naproxen. Consider follow-up with endoscopy. (3) Exertional chest pain: Cardiology documentation noted, cardiology signed off. TTE with normal EF, grade 1 diastolic dysfunction. No regional wall motion abnormality. No additional work-up per cardiology in case surgery were needed. Baseline troponin is normal. No chest pain or pressure at rest. No CHF symptoms. Continue aspirin. Risk factors for CAD include family history, father had OR at 45, secondhand smoke exposure, morbid obesity, DM, HTN, HLD. (4) Exertional shortness of breath: Discussed with him and family aside from follow-up with regards to stress test would benefit from pulmonary function testing. Denies any known history of lung disease. History of secondhand smoke exposure from his parents. He does state that he has gained quite a bit of weight, as well as that he has been quite inactive and feels he has become out of shape. (5) CAMERON (obstructive sleep apnea): Wears nightly CPAP. (6) HTN (hypertension): Blood pressure is better, continue to monitor (7) Diabetes: Continue home Tresiba. Will not increase at the moment, one of the sugars was 96. At that time Premeal insulin was held. Premeal Humalog and sliding scale. Monitor glucose. Attestations Medical Necessity Statement*: Continue admission for treatment of acute cholecystitis. Diagnoses Acute cholecystitis K81.0 Duodenitis K29.80 Exertional chest pain R07.9 Exertional shortness of breath R06.02 CAMERON (obstructive sleep apnea) G47.33 HTN (hypertension) I10 Diabetes E11.9
[2022-08-21 20:56] LABS: Glucose Point of Care 205 mg/dL (70-110)
[2022-08-21] MEDS: NON-FORMULARY MEDICATION 80 EACH SUBCUT (21:10)
[2022-08-21] MEDS: PARoxetine 20 mg Tablet 30 MG PO (21:12)
[2022-08-21] MEDS: atorvastatin 40 mg Tablet PO (21:12)
[2022-08-22] VITALS: BP 144/77; PULSE 88; RESP 16; TEMP 36.7; O2SAT 96
[2022-08-22 04:00] VITALS: BP 133/84; PULSE 85; RESP 16; TEMP 36.8; O2SAT 96
[2022-08-22 05:39] LABS: Basophils # 0.1 10^3/uL (0.0-0.1); Basophils % 0.6 %; Eosinophils # 0.3 10^3/uL (0.0-0.8); Eosinophils % 1.6 %; Hematocrit 37.7 % (42.0-52.0); Hemoglobin 11.7 g/dL (11.7-16.6); Lymphocytes # 2.2 10^3/uL (0.8-4.8); Mean Corpuscular Hemoglobin 26.5 pg (28.0-34.0); Mean Corpuscular Volume 85.5 fl (80-94); Mean Platelet Volume 9.8 fL (7.4-10.4); Monocytes # 1.2 10^3/uL (0.2-0.9); Monocytes % 7.8 %; Neutrophils # 11.57 10^3/uL (1.8-7.7); Neutrophils % 74.3 %; Nucleated Red Blood Cells % 0 %; Platelet Count 276 10^3/cmm (130-400); Red Blood Count 4.41 10^6/uL (4.1-5.3); Red Cell Distribution Width 16.5 % (12.1-15.1); White Blood Count 15.6 10^3/uL (4.0-10.0)
[2022-08-22 06:02] LABS: Alanine Aminotransferase 74 U/L (0-41); Albumin Level 3.2 g/dL (3.5-5.2); Alkaline Phosphatase 246 U/L (40-130); Anion Gap 13.9 (5-19); Aspartate Amino Transferase 36 U/L (0-40); Blood Urea Nitrogen 20 mg/dL (6-20); Calcium 8.8 mg/dL (8.5-10.5); Carbon Dioxide 25 mmol/L (22-29); Chloride 100 mmol/L (98-107); Globulin 3.7 g/dL (1.3-4.6); Glomerular Filtration Rate 62.4 mL/min (90-130); Glucose 190 mg/dL (65-115); Osmolality Calculated 288 mOsm/kg (285-295); Potassium 3.9 mmol/L (3.5-5.1); Sodium 135 mmol/L (136-145); Total Bilirubin 0.3 mg/dL (0.15-1.2); Total Protein 6.9 g/dL (6.6-8.7)
[2022-08-22] MEDS: famotidine 20 mg Tablet PO (06:04)
[2022-08-22] MEDS: piperacillin-tazobactam 3.375 GM in sodium chloride 0.9% (plus) 50 ML IV (06:04)
[2022-08-22] MEDS: heparin 5,000 unit/mL INJ 1 mL 5000 UNIT SUBCUT (06:04)
[2022-08-22 06:18] VITALS: RESP 17
[2022-08-22] MEDS: morphine 4 mg/mL SDV 1 mL IVP (06:18)
[2022-08-22 06:48] LABS: Glucose Point of Care 208 mg/dL (70-110)
[2022-08-22 08:00] VITALS: BP 128/88; PULSE 81; RESP 16; TEMP 36.7; O2SAT 94
[2022-08-22] MEDS: insulin lispro 100 unit/1 mL SUBCUT (08:02)
[2022-08-22] MEDS: insulin lispro 100 unit/1 mL 35 UNIT SUBCUT (08:03)
[2022-08-22] MEDS: aspirin 81 mg EC Tablet PO (08:04)
--- NOTE | 2022-08-22 11:20 | PM.DCS ---
Discharge Providers Date of Admission: 08/19/22 15:00 Date of Discharge: August 22, 2022 Attending Provider at Admission: Croky Hunt Attending Provider at Discharge: Corky Hunt Primary Care Provider: Nba Arreaga Diagnoses at Discharge Discharge Diagnosis (1) Acute cholecystitis: Status: Acute (2) Duodenitis: Status: Acute (3) Exertional chest pain: Status: Acute (4) Exertional shortness of breath: Status: Acute (5) CAMERON (obstructive sleep apnea): Status: Acute (6) HTN (hypertension): Status: Acute (7) Diabetes: Status: Acute Reason for Visit Reason for Visit: abd pains Hospital Course Hospital Course This very pleasant gentleman who presented to the hospital with a 5-day history of right upper quadrant abdominal pain. He was found to have acute cholecystitis. Due to the extended length of his symptoms, we opted for antibiotic therapy to be followed by interval cholecystectomy in 6 to 8 weeks. His white blood cell count came down and he was tolerating a diet prior to discharge with antibiotics and follow-up with general surgery. Physical Exam Narrative: General : Patient is well developed , no acute distress, oriented x3 Head : Normal cephalic, a-traumatic. Ears : Pinnae and external canal are normal. Hearing is normal. Eyes : PERRLA, Sclera and injection are normal. No conjunctival discharge. Nose : Mucous membranes are without erythema. Throat : buccal mucosa is normal, gums are without significant recession or hypertrophy. Lungs : Equal chest rise bilaterally, no use of accessory muscles, trachea is midline. Cor : Rate and rhythm are normal. Abdomen : Soft, ND, tender to palpation right upper quadrant, negative Hodge's, no g/r/m Extremities : No edema, no cyanosis or clubbing, dorsalis pedis pulses are present bilaterally, non-tender to palpation of calves. Upper extremities are normal bilaterally. Back : non-tender to palpation, no CVA tenderness. Neuro : CN II - XII intact, Upper and lower extremities have equal and full strength Discharge Data Studies Completed and Pending Completed Studies During Hospitalization Category Date Time Status CT abdomen pelvis wo con [id number] Stat Cat Scan 08/19/22 12:48 Completed XR chest 1V portable [id number] Stat Exams 08/19/22 11:39 Completed CV. echo wo/w contrast [id number] Stat Ultrasound 08/19/22 14:43 Completed US gall bladder [id number] Stat Ultrasound 08/19/22 11:43 Completed Radiology Impressions Chest X-Ray 08/19/22 11:39 IMPRESSION: No acute findings. Gallbladder Ultrasound 08/19/22 11:43 IMPRESSION: 1. Extremely limited evaluation of the RIGHT upper quadrant due to body habitus. 2. Hepatomegaly with severe hepatic steatosis. Poor visualization of the liver. 3. Limited visualization of the gallbladder. No stones identified. Abdomen/Pelvis CT 08/19/22 12:48 IMPRESSION: 1. Moderate inflammatory process in the RIGHT upper quadrant extending between the gallbladder and the proximal duodenum. Favor this is probably mild acute cholecystitis with secondary extension to the duodenum. 2. No bile duct dilatation. 3. Hepatic steatosis and hepatomegaly. 4. Nonobstructing bilateral renal calculi. 5. Normal appendix. Laboratory Results WBC 15.6 10^3/uL (4.0-10.0) H 08/22/22 05:09 RBC 4.41 10^6/uL (4.1-5.3) 08/22/22 05:09 Hgb 11.7 g/dL (11.7-16.6) 08/22/22 05:09 Hct 37.7 % (42.0-52.0) L 08/22/22 05:09 MCV 85.5 fl (80-94) 08/22/22 05:09 MCH 26.5 pg (28.0-34.0) L 08/22/22 05:09 MCHC 31.0 g/dL (30.0-36.0) 08/22/22 05:09 RDW 16.5 % (12.1-15.1) H 08/22/22 05:09 Plt Count 276 10^3/cmm (130-400) 08/22/22 05:09 MPV 9.8 fL (7.4-10.4) 08/22/22 05:09 Neut % (Auto) 74.3 % 08/22/22 05:09 Lymph % (Auto) 14.0 % 08/22/22 05:09 [place] % (Auto) 7.8 % 08/22/22 05:09 Eos % (Auto) 1.6 % 08/22/22 05:09 Baso % (Auto) 0.6 % 08/22/22 05:09 Neut # (Auto) 11.57 10^3/uL (1.8-7.7) H 08/22/22 05:09 Lymph # (Auto) 2.2 10^3/uL (0.8-4.8) 08/22/22 05:09 [place] # (Auto) 1.2 10^3/uL (0.2-0.9) H 08/22/22 05:09 Eos # (Auto) 0.3 10^3/uL (0.0-0.8) 08/22/22 05:09 Baso # (Auto) 0.1 10^3/uL (0.0-0.1) 08/22/22 05:09 Nucleated RBC % (auto) 0 % 08/22/22 05:09 Nucleated RBCs # 0.0 /100WBC 08/22/22 05:09 Sodium 135 mmol/L (136-145) L 08/22/22 05:09 Potassium 3.9 mmol/L (3.5-5.1) 08/22/22 05:09 Chloride 100 mmol/L (98-107) 08/22/22 05:09 Carbon Dioxide 25 mmol/L (22-29) 08/22/22 05:09 Anion Gap 13.9 (5-19) 08/22/22 05:09 BUN 20 mg/dL (6-20) 08/22/22 05:09 Creatinine 1.2 mg/dL (0.7-1.2) 08/22/22 05:09 GFR Calculation 62.4 mL/min (90-130) L 08/22/22 05:09 Glucose 190 mg/dL (65-115) H 08/22/22 05:09 POC Glucose 208 mg/dL (70-110) H 08/22/22 06:39 Calculated Osmolality 288 mOsm/kg (285-295) 08/22/22 05:09 Lactic Acid 2.0 mmol/L (0.5-2.2) 08/19/22 11:42 Calcium 8.8 mg/dL (8.5-10.5) 08/22/22 05:09 Total Bilirubin 0.3 mg/dL (0.15-1.2) 08/22/22 05:09 AST 36 U/L (0-40) 08/22/22 05:09 ALT 74 U/L (0-41) H 08/22/22 05:09 Alkaline Phosphatase 246 U/L (40-130) H 08/22/22 05:09 Troponin T Baseline 15 ng/L (0-15) 08/19/22 11:42 Troponin T 120 Minute 15.08 ng/L (0-15) H 08/19/22 14:18 Delta Troponin T 0.08 ABS# (0-10) 08/19/22 14:18 Total Protein 6.9 g/dL (6.6-8.7) 08/22/22 05:09 Albumin 3.2 g/dL (3.5-5.2) L 08/22/22 05:09 Globulin 3.7 g/dL (1.3-4.6) 08/22/22 05:09 Lipase 14 U/L (13-60) 08/19/22 11:42 Urine Color Yellow (Yellow) 08/19/22 11:56 Urine Appearance Clear (CLEAR) 08/19/22 11:56 Urine pH 6.5 (5-7) 08/19/22 11:56 Ur Specific [place] 1.015 (1.005-1.030) 08/19/22 11:56 Urine Protein Trace (Negative) 08/19/22 11:56 Urine Glucose (UA) 4+ (Normal) H 08/19/22 11:56 Urine Ketones Negative (Negative) 08/19/22 11:56 Urine Blood Neg (Negative) 08/19/22 11:56 Urine Nitrate Negative (Negative) 08/19/22 11:56 Urine Bilirubin Neg (Negative) 08/19/22 11:56 Urine Urobilinogen 1 mg/dL (Negative) H 08/19/22 11:56 Ur Leukocyte Esterase Negative (Negative) 08/19/22 11:56 Urine RBC None /hpf (0-2) 08/19/22 11:56 Urine WBC Rare /hpf (0-5) 08/19/22 11:56 Ur Squamous Epith Cells Rare /hpf (0-5) 08/19/22 11:56 Amorphous Sediment Not Reportable 08/19/22 11:56 Urine Bacteria None /hpf (NONE) 08/19/22 11:56 Procedures Performed None Vitals Last Vital Signs Temp 98.1 F 08/22/22 08:00 Pulse 81 08/22/22 08:00 Resp 16 08/22/22 08:00 BP 128/88 08/22/22 08:00 Pulse Ox 94 08/22/22 08:00 O2 Del Method Room Air 08/22/22 08:00 Discharge Plan Discharge Patient Disposition: Home Condition: Stable Prescriptions: New tramadol 50 mg tablet 100 mg PO Q6H PRN (Reason: pain) Qty: 40 0RF Rx Instructions: May take 1 tab at a time amoxicillin-pot clavulanate 875-125 mg tablet 1 tab PO BID Qty: 24 0RF Colace 100 mg capsule 100 mg PO BID Qty: 14 0RF Continued atorvastatin 40 mg tablet 40 mg PO BEDTIME cetirizine 10 mg tablet 10 mg PO QAM amlodipine 5 mg tablet 5 mg PO QAM aspirin 81 mg Tablet,Delayed Release (Dr/Ec) 81 mg PO DAILY famotidine 20 mg tablet 20 mg PO QAM paroxetine HCl 30 mg tablet 30 mg PO BEDTIME Aleve 220 mg Tablet 440 mg PO BEDTIME cholecalciferol (vitamin D3) 1,250 mcg (50,000 unit) capsule See Rx Instructions .ROUTE .COMPLEX Rx Instructions: 50,000 units po every 15 days Tresiba FlexTouch U-200 200 unit/mL (3 mL) insulin pen See Rx Instructions .ROUTE .COMPLEX Rx Instructions: 40 units subcutaneously qam and 100 units at bedtime Humalog KwikPen Insulin 200 unit/mL (3 mL) insulin pen See Rx Instructions .ROUTE .COMPLEX Rx Instructions: INJECT 45 UNITS 3 TIMES DAILY PLUS SLIDING SCALE. MAX DAILY 175 UNITS hydrochlorothiazide 25 mg tablet 25 mg PO QAM Discharge Orders: Discharge Order (Routine); Ordered 08/22/22 Ordered By: Matias Polanco Referrals: Nba Arreaga [Primary Care Provider] - 4-7 days Matias Polanco DO [Physician] - 2 weeks Patient Instructions: Opioid Safety Discharge Attestations Time Spent in Discharge Care*: less than 30 min Quality Metrics Clinical Quality Measures [ No reported AMI, CVA or VTE this stay] Coding Level of Care Code Acute Code for Chg Fwd Diagnoses Acute cholecystitis K81.0 Duodenitis K29.80 Exertional chest pain R07.9 Exertional shortness of breath R06.02 CAMERON (obstructive sleep apnea) G47.33 HTN (hypertension) I10 Diabetes E11.9
[2022-08-22 11:37] LABS: Glucose Point of Care 77 mg/dL (70-110)
[2022-08-22 11:57] VITALS: PULSE 78; RESP 16; O2SAT 95
[2022-08-22 13:00] VITALS: PULSE 78; RESP 16; O2SAT 95
--- NOTE | 2022-08-22 13:08 | P.PN_ITS ---
Subjective Subjective: He is continuing to improve, soreness left lower and right upper quadrant but it has been improving. Vitals/I&O/Wt Last Vital Signs Temp 98.1 F 08/22/22 08:00 Pulse 78 08/22/22 13:00 Resp 16 08/22/22 13:00 BP 128/88 08/22/22 08:00 Pulse Ox 95 08/22/22 13:00 O2 Del Method Room Air 08/22/22 11:57 08/21/22 08/22/22 08/22/22 22:59 06:59 14:59 Intake Total 530 / 4183.319 3781 / 2207.915 50 / 50 Balance 530 / 8878.930 3743 / 2207.915 50 / 50 Physical Exam Narrative: Family at bedside. Const: COMMON NORMALS: patient oriented x3 and alert GENERAL APPEARANCE: c ooperative NUTRITIONAL APPEARANCE: obese ORIENTATION/CONSCIOUSNESS: Yes awake HENMT: COMMON NORMALS: oropharynx normal Neck/C-Spine: COMMON NORMALS: no JVD Resp: COMMON NORMALS: normal respiratory effort and clear to auscultation bilaterally AUSCULTATION: clear to auscultation bilaterally Cardio: COMMON NORMALS: no JVD, regular rhythm, S1 normal heart sound present, S2 normal heart sound present and No murmurs present (Cardio) RHYTHM: regular rhythm HEART SOUNDS: S1 normal heart sound present and S2 normal heart sound present GI: COMMON NORMALS: Normal to inspection, nondistended, normoactive bowel sounds present, Soft to palpation and non-tender PALPATION: Yes Soft to palpation and Yes Tenderness to palpation present (GI) OTHER: Continue to improve tenderness RUQ Extremity: COMMON NORMALS: no joint enlargement and no pedal edema Neuro: COMMON NORMALS: patient oriented x3 and moves all extremities SENSORIUM/ORIENTATION: Yes alert Skin: COMMON NORMALS: no rashes or lesions noted GENERAL SKIN EXAM: no rashes or lesions noted Data 08/22/22 05:09 08/22/22 05:09 A&P Assessment and plan (1) Acute cholecystitis: Complete Augmentin and follow-up with surgery to plan for interval cholecystectomy as discussed. (2) Duodenitis: Stop naproxen and avoid NSAIDs. Stop famotidine, as discussed prescription given for omeprazole. As discussed follow-up with surgery for consideration of endoscopic evaluation of duodenitis, chronic NSAID use. (3) Exertional chest pain: As previously discussed, follow-up with stress test. Follow-up with primary provider, continue optimize cardiovascular risk factors. Cardiology documentation noted, cardiology signed off. TTE with normal EF, grade 1 diastolic dysfunction. No regional wall motion abnormality. Risk factors for CAD include family history, father had MD at 45, secondhand smoke exposure, morbid obesity, DM, HTN, HLD. (4) Exertional shortness of breath: Discussed, once out of acute illness consider additional assessment by pulmonary function testing in addition to the stress test. Work towards achieving weight loss. (5) CAMERON (obstructive sleep apnea): Wears nightly CPAP. (6) HTN (hypertension): Blood pressure is better, continue to monitor (7) Diabetes: Continue insulin, monitor glucose. Attestations Medical Necessity Statement*: Returning home with outpatient follow-up. Diagnoses Acute cholecystitis K81.0 Duodenitis K29.80 Exertional chest pain R07.9 Exertional shortness of breath R06.02 CAMERON (obstructive sleep apnea) G47.33 HTN (hypertension) I10 Diabetes E11.9
== END 2022-08-22 12:45 | disposition home or self-care (01) | DRG 445 ==
LOC: ER 13:59 → MEDSURG 17:11
PROVIDERS: Admitting Provider Internal Medicine; Emergency Provider Family Medicine; PCP Family Medicine; Visit Provider Internal Medicine
DX: K81.0 Acute cholecystitis (principal); Z68.42 Body mass index [BMI] 45.0-49.9, adult; K29.80 Duodenitis without bleeding; G47.33 Obstructive sleep apnea (adult) (pediatric); I10 Essential (primary) hypertension; E11.9 Type 2 diabetes mellitus without complications; Z79.82 Long term (current) use of aspirin; Z79.4 Long term (current) use of insulin; E66.01 Morbid (severe) obesity due to excess calories; E78.5 Hyperlipidemia, unspecified; Z99.89 Dependence on other enabling machines and devices; Z82.49 Family history of ischemic heart disease and other diseases of the circulatory system; K76.0 Fatty (change of) liver, not elsewhere classified; Z85.47 Personal history of malignant neoplasm of testis; Z90.79 Acquired absence of other genital organ(s); R07.9 Chest pain, unspecified
CPT/HCPCS: 36415; 36416; 71045; 74176; 76705; 80053; 81001; 82962; 83605; 83690; 84484; 85025; 93005; 94660; 96365; 96372; 96375; 99285; C8929; J1644; J1815; J2270; J2543; Q9956

== ENCOUNTER 2022-10-20 13:40 | Observation (INO) | payer BC, SELFPAY ==
[2022-10-20] VITALS (12 sets, daily range): BP systolic 119–172; BP diastolic 75–122; PULSE 86–94; RESP 18–22; TEMP 36.6–36.9; O2SAT 93–97; BMI 44.7
--- NOTE | 2022-10-20 14:26 | W.ED.ABDPA2 ---
HPI - Abdominal Pain General: Chief Complaint: Abdominal Pain Stated Complaint: gallbladder pain, surgery in the morning Time Seen by Provider: 10/20/22 14:26 History of Present Illness: 56-year-old gentleman with known history of gallbladder disease presenting due to worsening pain. Right upper quadrant in location. Worse with palpation movement. Generally feels unwell. No other specific changes in health, exacerbating, or alleviating factors identified. Severity: moderate Exacerbating factors: eating and movement Review of Systems General: Reports: 10 or more systems reviewed and unremarkable except in HPI and below PFSH ED PFSH: Medical History Allergic rhinitis due to allergen Diabetes History of meniscal tear HTN (hypertension) Hx of testicular cancer CAMERON (obstructive sleep apnea) Surgical History History of nasal surgery History of orchiectomy History of shoulder surgery Hx laparoscopic cholecystectomy 10/21/22 lap cristhian with intraoperative cholangiogram Dr. Polanco Social History Smoking and tobacco status: never smoked Second hand smoke exposure: Yes Alcohol intake: never Substance/Drug Use: never Lives independently: Yes Household members: spouse Marital status: Current occupational status: employed Physical Exam Const: COMMON NORMALS: alert GENERAL APPEARANCE: cooperative and well developed HENMT: COMMON NORMALS: normocephalic and atraumatic HEAD & SCALP: normocephalic and atraumatic Eye: COMMON NORMALS: conjunctivae normal CONJUNCTIVA: Yes conjunctivae normal SCLERA: sclerae normal Neck/C-Spine: COMMON NORMALS: supple GENERAL: Yes trachea midline Resp: COMMON NORMALS: clear to auscultation bilaterally EFFORT & INSPECTION: Yes able to speak in complete sentences AUSCULTATION: clear to auscultation bilaterally Cardio: COMMON NORMALS: regular rate and regular rhythm RATE: regular rate RHYTHM: regular rhythm GI: COMMON NORMALS: Soft to palpation PALPATION: Yes Soft to palpation, Yes Tenderness to palpation present (GI), Yes Guarding due to palpation present (GI) and No Rigid due to palpation Extremity: GENERAL: Yes normal exam except as noted and No edema Neuro: COMMON NORMALS: moves all extremities SENSORIUM/ORIENTATION: Yes alert and No Orientation impaired Psych: COMMON NORMALS: mental status grossly normal and Normal thought process present THOUGHT PROCESS: Normal thought process present Course Vital Signs: Vital signs: Vital Signs Temperature 98.6 F 10/21/22 17:31 Pulse Rate 97 10/21/22 17:31 Respiratory Rate 16 10/21/22 17:31 Blood Pressure 151/90 10/21/22 17:31 Pulse Oximetry 91 10/21/22 17:31 Oxygen Delivery Me thod Nasal Cannula 10/21/22 16:00 Oxygen Flow Rate 6 10/21/22 10:01 MDM - Abdominal Pain Medical Decision Making 56-year-old gentleman with known gallbladder disease presenting with abdominal pain with planned surgical management in the morning. Exam as above with tenderness and guarding however no evidence of acute surgical abdomen. Patient is nontoxic. Labs notable for mild leukocytosis, normal hemoglobin and platelet count. Metabolic panel with elevated bilirubin compared to prior and transaminitis. Lipase is normal. No UTI. Ultrasound with borderline enlargement of common bile duct. No discrete stones identified. Discussed with Dr. Polanco and patient to be admitted for planned procedure with likely intraoperative cholangiogram. During ED course patient treated with analgesia, antiemetic, and fluids Medical Records I reviewed the patient's medical records. Lab Data I reviewed the patient's lab results. 10/21/22 09:57 10/21/22 08:13 Labs/Radiology: Radiology Impressions Gallbladder Ultrasound 10/20/22 16:09 IMPRESSION: No acute abnormality. Abdomen X-Ray 10/21/22 00:00 IMPRESSION: 1. Opacification of the biliary tree shows mild dilatation of the intrahepatic and extrahepatic bile ducts. Contrast is not identified in the duodenum. Obstructed distal common bile duct due to retained stone or neoplasm is not ruled out. Laboratory Results WBC 12.4 10^3/uL (4.0-10.0) H 10/20/22 14:58 RBC 5.02 10^6/uL (4.1-5.3) 10/20/22 14:58 Hgb 13.5 g/dL (11.7-16.6) 10/20/22 14:58 Hct 43.5 % (42.0-52.0) 10/20/22 14:58 MCV 86.7 fl (80-94) 10/20/22 14:58 MCH 26.9 pg (28.0-34.0) L 10/20/22 14:58 MCHC 31.0 g/dL (30.0-36.0) 10/20/22 14:58 RDW 17.0 % (12.1-15.1) H 10/20/22 14:58 Plt Count 298 10^3/cmm (130-400) 10/20/22 14:58 MPV 9.4 fL (7.4-10.4) 10/20/22 14:58 Neut % (Auto) 73.6 % 10/20/22 14:58 Lymph % (Auto) 16.3 % 10/20/22 14:58 [place] % (Auto) 7.2 % 10/20/22 14:58 Eos % (Auto) 0.9 % 10/20/22 14:58 Baso % (Auto) 0.6 % 10/20/22 14:58 Neut # (Auto) 9.15 10^3/uL (1.8-7.7) H 10/20/22 14:58 Lymph # (Auto) 2.0 10^3/uL (0.8-4.8) 10/20/22 14:58 [place] # (Auto) 0.9 10^3/uL (0.2-0.9) 10/20/22 14:58 Eos # (Auto) 0.1 10^3/uL (0.0-0.8) 10/20/22 14:58 Baso # (Auto) 0.1 10^3/uL (0.0-0.1) 10/20/22 14:58 Nucleated RBC % (auto) 0 % 10/20/22 14:58 Nucleated RBCs # 0.0 /100WBC 10/20/22 14:58 Sodium 136 mmol/L (136-145) 10/20/22 14:58 Potassium 3.9 mmol/L (3.5-5.1) 10/20/22 14:58 Chloride 95 mmol/L (98-107) L 10/20/22 14:58 Carbon Dioxide 26 mmol/L (22-29) 10/20/22 14:58 Anion Gap 18.9 (5-19) 10/20/22 14:58 BUN 20 mg/dL (6-20) 10/20/22 14:58 Creatinine 1.2 mg/dL (0.7-1.2) 10/20/22 14:58 GFR Calculation 62.4 mL/min (90-130) L 10/20/22 14:58 Glucose 204 mg/dL (65-115) H 10/20/22 14:58 Calculated Osmolality 290 mOsm/kg (285-295) 10/20/22 14:58 Calcium 9.8 mg/dL (8.5-10.5) 10/20/22 14:58 Total Bilirubin 1.7 mg/dL (0.15-1.2) H 10/20/22 14:58 AST 302 U/L (0-40) H 10/20/22 14:58 ALT 329 U/L (0-41) H 10/20/22 14:58 Alkaline Phosphatase 344 U/L (40-130) H 10/20/22 14:58 Total Protein 8.0 g/dL (6.6-8.7) 10/20/22 14:58 Albumin 4.2 g/dL (3.5-5.2) 10/20/22 14:58 Globulin 3.8 g/dL (1.3-4.6) 10/20/22 14:58 Lipase 20 U/L (13-60) 10/20/22 14:58 Urine Color Yellow (Yellow) 10/20/22 17:51 Urine Appearance Clear (CLEAR) 10/20/22 17:51 Urine pH 6 (5-7) 10/20/22 17:51 Ur Specific [place] 1.020 (1.005-1.030) 10/20/22 17:51 Urine Protein Neg (Negative) 10/20/22 17:51 Urine Glucose (UA) Trace (Normal) H 10/20/22 17:51 Urine Ketones Negative (Negative) 10/20/22 17:51 Urine Blood Neg (Negative) 10/20/22 17:51 Urine Nitrate Negative (Negative) 10/20/22 17:51 Urine Bilirubin Neg (Negative) 10/20/22 17:51 Urine Urobilinogen 4 mg/dL (Negative) H 10/20/22 17:51 Ur Leukocyte Esterase Negative (Negative) 10/20/22 17:51 Discharge Plan Discharge Patient Disposition: Admitted As Inpatient Admit Provider: Matias Polanco Clinical Impression: Abdominal pain, Cholecystitis Condition: Stable Discharge Activity: Resume usual activity Coding Level of Care Code ED [employer] Specialist for Chg Fwd
[2022-10-20] MEDS: morphine 4 mg/mL SDV 1 mL IVP ×3 (15:03→23:43)
[2022-10-20] MEDS: sodium chloride 0.9% 1,000 ML 125 ML IV ×2 (15:03→23:43)
[2022-10-20] MEDS: ondansetron 2 mg/ML SDV 2 mL 4 MG IVP (15:03)
[2022-10-20 15:04] LABS: Basophils # 0.1 10^3/uL (0.0-0.1); Basophils % 0.6 %; Eosinophils # 0.1 10^3/uL (0.0-0.8); Eosinophils % 0.9 %; Hematocrit 43.5 % (42.0-52.0); Hemoglobin 13.5 g/dL (11.7-16.6); Lymphocytes % 16.3 %; Mean Corpuscular Hemoglobin 26.9 pg (28.0-34.0); Mean Corpuscular Volume 86.7 fl (80-94); Mean Platelet Volume 9.4 fL (7.4-10.4); Monocytes # 0.9 10^3/uL (0.2-0.9); Monocytes % 7.2 %; Neutrophils # 9.15 10^3/uL (1.8-7.7); Neutrophils % 73.6 %; Nucleated Red Blood Cells % 0 %; Platelet Count 298 10^3/cmm (130-400); Red Blood Count 5.02 10^6/uL (4.1-5.3); White Blood Count 12.4 10^3/uL (4.0-10.0)
[2022-10-20 15:31] LABS: Alanine Aminotransferase 329 U/L (0-41); Albumin Level 4.2 g/dL (3.5-5.2); Alkaline Phosphatase 344 U/L (40-130); Anion Gap 18.9 (5-19); Aspartate Amino Transferase 302 U/L (0-40); Blood Urea Nitrogen 20 mg/dL (6-20); Calcium 9.8 mg/dL (8.5-10.5); Carbon Dioxide 26 mmol/L (22-29); Chloride 95 mmol/L (98-107); Globulin 3.8 g/dL (1.3-4.6); Glomerular Filtration Rate 62.4 mL/min (90-130); Glucose 204 mg/dL (65-115); Lipase 20 U/L (13-60); Osmolality Calculated 290 mOsm/kg (285-295); Potassium 3.9 mmol/L (3.5-5.1); Sodium 136 mmol/L (136-145); Total Bilirubin 1.7 mg/dL (0.15-1.2)
--- NOTE | 2022-10-20 16:09 | US_ITS ---
WS: [id number] ABDOMINAL ULTRASOUND LIMITED REASON FOR EXAM: RUQ pain, elevated t bili and transaminases COMPARISON: None available. ORDER DATE: 10/20/2022 4:23 PM TECHNIQUE: Grayscale and Doppler ultrasound examination of the abdomen. FINDINGS: Pancreas: Not visualized due to artifact. Abdominal aorta and IVC: Aorta 18.7 mm in diameter IVC 18.4 mm in diameter Liver: Liver measures 18.4 cm in length. Unremarkable for chronic changes or lesions Gallbladder: Gallbladder wall thickness measures 0.3 mm. Common bile duct diameter 5.8 mm Right kidney: Right kidney measures 9.6 cm x 4.6 cm x 4.8 cm. Right kidney cortex measures 1.3 cm. No focal abnormalities. US/US gall bladder [id number] IMPRESSION: No acute abnormality.
[2022-10-20 18:00] LABS: Add Urine Microscopic? NO; Charge for UA Resulting for Rev
[2022-10-20 18:06] LABS: Bilirubin Urine Neg (Negative); Blood Urine Neg (Negative); Glucose Urine UA Trace (Normal); Ketones Urine Negative (Negative); Leukocyte Esterase Urine Negative (Negative); Nitrate Urine Negative (Negative); Protein Urine Neg (Negative); Urine Appearance Clear (CLEAR); Urine Color Yellow (Yellow); Urobilinogen Urine 4 mg/dL (Negative); pH Urine 6 (5-7)
--- NOTE | 2022-10-20 22:03 | P.HP_ITS ---
Providers/Chief Complaint Admitting Physician: Matias Polanco DO Primary Care Provider: Nba Arreaga Chief Complaint: gallbladder pain, surgery in the morning History of Present Illness Anthoyn Littlejohn is a 56 year old male scheduled for laparoscopic cholecystectomy tomorrow, comes in with recurrent right upper quadrant abdominal pain. The pain radiates to his back and is sharp in nature. Eating makes pain worse. Nothing makes pain better. Denies any nausea or vomiting. Review of Systems General: Reports: 10 or more systems reviewed and unremarkable except in HPI and below Medications/Allergies Home Medications Medication Instructions Recorded Confirmed Last Taken Type amlodipine 5 mg tablet 5 mg PO QAM 08/19/22 10/20/22 10/20/22 History aspirin 81 mg tablet,delayed 81 mg PO DAILY 08/19/22 10/20/22 10/20/22 History release atorvastatin 40 mg tablet 40 mg PO BEDTIME 08/19/22 10/20/22 10/19/22 History cetirizine 10 mg tablet 10 mg PO QAM 08/19/22 10/20/22 10/20/22 History cholecalciferol (vitamin D3) 1,250 See Rx Instructions .Route .COMPLEX 08/19/22 10/20/22 Unknown History mcg (50,000 unit) capsule hydrochlorothiazide 25 mg tablet 25 mg PO QAM 08/19/22 10/20/22 10/20/22 History insulin degludec 200 unit/mL (3 See Rx Instructions .Route .COMPLEX 08/19/22 10/20/22 10/20/22 History mL) subcutaneous pen (Tresiba FlexTouch U-200 insulin) insulin lispro 200 unit/mL (3 mL) See Rx Instructions .Route .COMPLEX 08/19/22 10/20/22 10/20/22 History subcutaneous pen (Humalog KwikPen U-200 Insulin) paroxetine HCl 30 mg tablet 30 mg PO BEDTIME 08/19/22 10/20/22 10/19/22 History tramadol 50 mg tablet 100 mg PO Q6H PRN pain #40 tabs 08/25/22 10/20/22 Unknown Rx Allergies Allergy/AdvReac Type Severity Reaction Status Date / Time chlorpromazine Allergy Intermediate Unknown Verified 09/08/22 15:26 dexamethasone Allergy Unknown Unknown Verified 09/08/22 15:26 erythromycin base Allergy Unknown Unknown Verified 09/08/22 15:26 ibuprofen Allergy Unknown Unknown Verified 09/08/22 15:26 metoclopramide Allergy Unknown Unknown Verified 09/08/22 15:26 pantoprazole Allergy Unknown Unknown Verified 09/08/22 15:26 acetaminophen [From Vicodin] Allergy Unknown Verified 09/08/22 15:26 hydrocodone [From Vicodin] Allergy Unknown Verified 09/08/22 15:26 lisinopril AdvReac Cough Verified 09/08/22 15:35 methylpred-80 Allergy Unknown Unknown Uncoded 09/08/22 15:26 PFSH Acute PFSH: Medical History Allergic rhinitis due to allergen Diabetes History of meniscal tear HTN (hypertension) Hx of testicular cancer CAMERON (obstructive sleep apnea) Surgical History History of nasal surgery History of orchiectomy History of shoulder surgery Social History Smoking and tobacco status: never smoked Second hand smoke exposure: Yes Alcohol intake: never Substance/Drug Use: never Lives independently: Yes Household members: spouse Marital status: Current occupational status: employed Vitals/I&O/Wt Last Vital Signs Temp 98.1 F 10/21/22 06:32 Pulse 90 10/21/22 06:32 Resp 18 10/21/22 06:32 BP 150/98 10/21/22 06:32 Pulse Ox 95 10/21/22 06:32 O2 Del Method Room Air 10/21/22 06:32 10/20/22 10/21/22 10/21/22 22:59 06:59 14:59 Intake Total 240 / 240 1822.917 / 2062.917 Balance 240 / 240 1822.917 / 2062.917 Weight last 48 hrs Weight 330 lb Physical Exam Narrative: General : Patient is well developed , no acute distress, oriented x3 Head : Normal cephalic, a-traumatic. Ears : Pinnae and external canal are normal. Hearing is normal. Eyes : PERRLA, Sclera and injection are normal. No conjunctival discharge. Nose : Mucous membranes are without erythema. Throat : buccal mucosa is normal, gums are without significant recession or hypertrophy. Lungs : Equal chest rise bilaterally, no use of accessory muscles, trachea is midline. Cor : Rate and rhythm are normal. Abdomen : Soft, ND, right upper quadrant tenderness, no g/r/m Extremities : No edema, no cyanosis or clubbing, dorsalis pedis pulses are present bilaterally, non-tender to palpation of calves. Upper extremities are normal bilaterally. Back : non-tender to palpation, no CVA tenderness. Neuro : CN II - XII intact, Upper and lower extremities have equal and full strength Data 10/20/22 14:58 10/20/22 14:58 A&P Assessment and plan (1) Cholecystitis: (2) Hyperbilirubinemia: Plan Laparoscopic cholecystectomy with intraoperative cholangiogram the risks and benefits of the procedure, including but not limited to, bleeding, infection, scar, numbness, pain, damage to surrounding structures, damage to common bile duct requiring additional surgery, conversion to an open procedure, were explained to the patient. He is understanding of the risks and wishes to proceed. Attestations Medical Necessity Statement*: Patient requires at least 1 night in the hospital for treatment of cholecystitis Coding Level of Care Code Acute Code for [facility] Diagnoses Cholecystitis K81.9 Hyperbilirubinemia E80.6
[2022-10-21] VITALS (15 sets, daily range): BP systolic 123–155; BP diastolic 76–102; PULSE 90–97; RESP 16–22; TEMP 36.1–37; O2SAT 90–97
--- NOTE | 2022-10-21 | XR_ITS ---
WS: [id number] Exam: XR abdomen min 2V [id number] Date/Time of Exam: 10/21/2022 12:00 AM Reason For Exam: CHOLANGIOGRAM C-arm images of the right upper abdomen obtained during operative cholangiogram. There is opacification of the intra and extrahepatic bile ducts which appear mildly dilated. No obvio us spillage of contrast into the duodenal C-loop can be identified. The possibility of obstruction of the distal common bile duct is not ruled out. XR/XR abdomen min 2V [id number] IMPRESSION: 1. Opacification of the biliary tree shows mild dilatation of the intrahepatic and extrahepatic bile ducts. Contrast is not identified in the duodenum. Obstru cted distal common bile duct due to retained stone or neoplasm is not ruled out .
[2022-10-21] MEDS: morphine 4 mg/mL SDV 1 mL IVP ×3 (04:17→13:08)
[2022-10-21] MEDS: ondansetron 2 mg/ML SDV 2 mL 4 MG IVP ×3 (05:14→12:59)
[2022-10-21] MEDS: sodium chloride 0.9% 1,000 ML 30 ML IV (06:56)
[2022-10-21] MEDS: diphenhydrAMINE 50 mg/mL SDV 1mL 12.5 MG IVP (06:56)
[2022-10-21] MEDS: scopolamine 1.5 Patch 1 PATCH TRANSDERMA (06:58)
--- NOTE | 2022-10-21 07:05 | P.PN_ITS ---
Vitals/I&O/Wt Last Vital Signs Temp 98.1 F 10/21/22 06:32 Pulse 90 10/21/22 06:32 Resp 18 10/21/22 06:32 BP 150/98 10/21/22 06:32 Pulse Ox 95 10/21/22 06:32 O2 Del Method Room Air 10/21/22 06:32 10/20/22 10/21/22 10/21/22 22:59 06:59 14:59 Intake Total 240 / 240 1822.917 / 2062.917 Balance 240 / 240 1822.917 / 2062.917 Weight last 48 hrs Weight 330 lb Data 10/20/22 14:58 10/20/22 14:58 A&P Assessment and plan (1) Cholecystitis: (2) Hyperbilirubinemia: Plan Laparoscopic cholecystectomy with intraoperative cholangiogram the risks and benefits of the procedure, including but not limited to, bleeding, infection, scar, numbness, pain, damage to surrounding structures, damage to common bile duct requiring additional surgery, conversion to an open procedure, were explained to the patient. He is understanding of the risks and wishes to proceed. Attestations Medical Necessity Statement*: Patient may require 1 further night in the hospital after laparoscopic cholecystectomy Coding Level of Care Code Acute Code for [facility] Diagnoses Cholecystitis K81.9 Hyperbilirubinemia E80.6
[2022-10-21] MEDS: ceFAZolin 3,000 MG in sodium chloride 0.9% (100 ml) 100 ML 200 MG IV (07:27)
--- NOTE | 2022-10-21 07:42 | ANES.PREANE2 ---
Pre-Anesthetic Assessment Height/Weight: Height 1.83 m Weight 149.685 kg Temp Pulse Resp BP Pulse Ox O2 Del Method 98.1 F 90 18 150/98 95 Room Air 10/21/22 06:32 10/21/22 06:32 10/21/22 06:32 10/21/22 06:32 10/21/22 06:32 10/21/22 06:32 Operation Date: 10/21/22 07:00 Proposed Procedures p 47956 lap cristhian R10.9(Not Applicable) - Matias Polanco DO Familial anesthetic complications: Alpha-GAL Was Beta Kyree taken within 24 hours: N/A Was Clonidine taken within 24 hours: N/A Last intake: Intake Last Liquid Date 10/21/22 Last Liquid Time 23:45 Last Solid Date 10/20/22 Last Solid Time 09:00 Social No alcohol and No tobacco Exam alert, oriented x 3, clear to auscultation bilaterally and regular rate & rhythm Airway Submandibular: within normal limits Cervical ROM: within normal limits Mallampati: Class II Dentition: false Pulmonary Sleep Apnea CV/HEM Hypertension Metabolic Diabetes Mellitus, Hyperlipidemia and Morbid Obesity Anesthetic Plan ASA status: 3 Anesthesia: General Medications/Allergies Home Medications Medication Instructions Recorded Confirmed Last Taken Type amlodipine 5 mg tablet 5 mg PO QAM 08/19/22 10/20/22 10/20/22 History aspirin 81 mg tablet,delayed 81 mg PO DAILY 08/19/22 10/20/22 10/20/22 History release atorvastatin 40 mg tablet 40 mg PO BEDTIME 08/19/22 10/20/22 10/19/22 History cetirizine 10 mg tablet 10 mg PO QAM 08/19/22 10/20/22 10/20/22 History cholecalciferol (vitamin D3) 1,250 See Rx Instructions .Route .COMPLEX 08/19/22 10/20/22 Unknown History mcg (50,000 unit) capsule hydrochlorothiazide 25 mg tablet 25 mg PO QAM 08/19/22 10/20/22 10/20/22 History insulin degludec 200 unit/mL (3 See Rx Instructions .Route .COMPLEX 08/19/22 10/20/22 10/20/22 History mL) subcutaneous pen (Tresiba FlexTouch U-200 insulin) insulin lispro 200 unit/mL (3 mL) See Rx Instructions .Route .COMPLEX 08/19/22 10/20/22 10/20/22 History subcutaneous pen (Humalog KwikPen U-200 Insulin) paroxetine HCl 30 mg tablet 30 mg PO BEDTIME 08/19/22 10/20/22 10/19/22 History tramadol 50 mg tablet 100 mg PO Q6H PRN pain #40 tabs 08/25/22 10/20/22 Unknown Rx Allergies Allergy/AdvReac Type Severity Reaction Status Date / Time chlorpromazine Allergy Intermediate Unknown Verified 09/08/22 15:26 dexamethasone Allergy Unknown Unknown Verified 09/08/22 15:26 erythromycin base Allergy Unknown Unknown Verified 09/08/22 15:26 ibuprofen Allergy Unknown Unknown Verified 09/08/22 15:26 metoclopramide Allergy Unknown Unknown Verified 09/08/22 15:26 pantoprazole Allergy Unknown Unknown Verified 09/08/22 15:26 acetaminophen [From Vicodin] Allergy Unknown Verified 09/08/22 15:26 hydrocodone [From Vicodin] Allergy Unknown Verified 09/08/22 15:26 lisinopril AdvReac Cough Verified 09/08/22 15:35 methylpred-80 Allergy Unknown Unknown Uncoded 09/08/22 15:26 Current Medications Generic Name Dose Route Start Last Admin Trade Name Freq PRN Reason Stop Dose Admin Diphenhydramine HCl 12.5 mg 10/21/22 06:30 10/21/22 06:56 Diphenhydramine 50 Mg/Ml Sdv 1ml IVP 12.5 mg ONCE PRN Administration Postop N/V Sodium Chloride 1,000 mls @ 125 mls/hr 10/20/22 14:45 10/21/22 06:18 Sodium Chloride 0.9% IV 0 mls/hr .Q8H ALLAN Infusion Morphine Sulfate 4 mg 10/20/22 19:27 10/21/22 04:17 Morphine 4 Mg/Ml Sdv 1 Ml IVP 4 mg Q1H PRN Administration SEVERE PAIN Ondansetron HCl 4 mg 10/20/22 19:27 10/21/22 05:14 Ondansetron 2 Mg/Ml Sdv 2 Ml IVP 4 mg Q4H PRN Administration NAUSEA AND VOMITING Ondansetron HCl 4 mg 10/21/22 06:30 10/21/22 06:56 Ondansetron 2 Mg/Ml Sdv 2 Ml IVP 4 mg ONCE PRN Administration NAUSEA AND VOMITING PFSH Anesthesia Medical History Allergic rhinitis due to allergen Diabetes History of meniscal tear HTN (hypertension) Hx of testicular cancer CAMERON (obstructive sleep apnea) Surgical History History of nasal surgery History of orchiectomy History of shoulder surgery Social History Smoking and tobacco status: never smoked Second hand smoke exposure: Yes Alcohol intake: never Substance/Drug Use: never Lives independently: Yes Household members: spouse Marital status: Current occupational status: employed Data Anesthesia 10/20/22 14:58 10/20/22 14:58 Short CBC 10/20/22 Range/Units 14:58 WBC 12.4 H (4.0-10.0) 10^3/uL Hgb 13.5 (11.7-16.6) g/dL Hct 43.5 (42.0-52.0) % MCV 86.7 (80-94) fl Plt Count 298 (130-400) 10^3/cmm Neut % (Auto) 73.6 % Neut # (Auto) 9.15 H (1.8-7.7) 10^3/uL BMP 10/20/22 14:58 Sodium 136 Potassium 3.9 Chloride 95 L Carbon Dioxide 26 BUN 20 Creatinine 1.2 Glucose 204 H Calcium 9.8 Liver Function 10/20/22 Range/Units 14:58 Total Bilirubin 1.7 H (0.15-1.2) mg/dL AST 302 H (0-40) U/L ALT 329 H (0-41) U/L Alkaline Phosphatase 344 H (40-130) U/L Albumin 4.2 (3.5-5.2) g/dL Urine 10/20/22 Range/Units 17:51 Urine Color Yellow (Yellow) Urine Appearance Clear (CLEAR) Urine pH 6 (5-7) Ur Specific [place] 1.020 (1.005-1.030) Urine Protein Neg (Negative) Urine Glucose (UA) Trace H (Normal) Urine Ketones Negative (Negative) Urine Nitrate Negative (Negative) Urine Bilirubin Neg (Negative) Ur Leukocyte Esterase Negative (Negative) Cardiac Studies: Echocardiogram 08/19/22
[2022-10-21] MEDS: lidocaine-epi 2% 20 mL INJ 10 ML INJECTION (07:49)
[2022-10-21] MEDS: glucagon 1 mg/mL KIT 1 mL IV (08:24)
[2022-10-21] MEDS: iohexol 300 mg/mL 50 mL Btl 20 ML XX (08:45)
[2022-10-21 08:59] LABS: Alanine Aminotransferase 687 U/L (0-41); Albumin Level 3.6 g/dL (3.5-5.2); Alkaline Phosphatase 394 U/L (40-130); Anion Gap 14.4 (5-19); Aspartate Amino Transferase 529 U/L (0-40); Blood Urea Nitrogen 16 mg/dL (6-20); Calcium 8.4 mg/dL (8.5-10.5); Carbon Dioxide 24 mmol/L (22-29); Chloride 102 mmol/L (98-107); Globulin 2.8 g/dL (1.3-4.6); Glucose 219 mg/dL (65-115); Osmolality Calculated 290 mOsm/kg (285-295); Potassium 4.4 mmol/L (3.5-5.1); Sodium 136 mmol/L (136-145); Total Bilirubin 2.8 mg/dL (0.15-1.2); Total Protein 6.4 g/dL (6.6-8.7)
--- NOTE | 2022-10-21 09:09 | P.OP_ITS ---
Operative Report Date of procedure: October 21, 2022 Pre-op diagnosis: Cholecystitis Hyperbilirubinemia Post-op diagnosis: Acute calculus cholecystitis Choledocholithiasis Procedure done: Laparoscopic cholecystectomy with intraoperative cholangiogram Implants: 19 Sammarinese Christian drain Specimens removed/disposition: Gallbladder Surgeon: Dr. Matias Polanco DO Anesthesia: General Estimated blood loss (mL): 5 Complications: None apparent Brief History: This very pleasant 56-year-old gentleman who was originally scheduled for laparoscopic cholecystectomy as an outpatient. He came in the night before and was found to have hyperbilirubinemia. Laparoscopic cholecystectomy with intraoperative cholangiogram was indicated. The risk and benefits were explained and documented. Procedure: Patient was wheeled into the operative room and placed on the OR table in a supine position. Abdomen was inspected prepped and draped in usual sterile fashion. Time-out was performed and all present were in agreement. A 15 blade scalp was used to make a stab incision in the left upper quadrant and intra- abdominal insufflation was achieved using a Veress needle. After localizing the tissue incisions were made and a 5 millimeter trocar was placed into the umbilicus as well as 2 in the right upper quadrant. A 12 millimeter trocar was placed in the epigastrium. Gallbladder was grasped and elevated. The triangle of Calot was carefully dissected using blunt dissection and electrocautery until the triangle of Calot clearly identified. The cystic duct was then clipped proximally and long-term transected just distal to this. A cholangiocatheter was then placed into the cystic duct and clipped into place. An intraoperative cholangiogram was then performed and no contrast was seen dumping into the duodenum. 0.2 of glucagon was administered and we waited 5 minutes. Repeat cholangiogram still showed no contrast into the duodenum. Cholangiocatheter was removed. Cystic duct was clipped 3 times distally and ligated. The cystic artery was doubly clipped distally and proximally and ligated. The cystic duct was clipped proximally and double clipped distally. The duct was then ligated proximally. The gallbladder was then removed from the liver using electrocautery. There was an abscess found between the gallbladder and the liver. Bile was purulent. The gallbladder was then removed from the liver bed using electrocautery. The gallbladder was removed from the abdomen using an Endo-Catch bag through the epigastric incision. The liver bed was inspected and no bleeding was seen. The abdomen was irrigated and suctioned. A 19 Sammarinese Christian drain was then placed into the gallbladder fossa coming out of the right upper quadrant and sewn into place w 4-0 Monocryl thank you in a subcuticular interrupted fashion. Skin glue was applied. Patient tolerated the procedure well.
--- NOTE | 2022-10-21 09:12 | PC.PHAR ---
pt not in room to do med rec
[2022-10-21 10:04] LABS: Basophils # 0.1 10^3/uL (0.0-0.1); Basophils % 0.4 %; Eosinophils # 0.1 10^3/uL (0.0-0.8); Eosinophils % 0.4 %; Hematocrit 40.6 % (42.0-52.0); Hemoglobin 12.4 g/dL (11.7-16.6); Lymphocytes # 1.7 10^3/uL (0.8-4.8); Mean Corpuscular HGB Conc 30.5 g/dL (30.0-36.0); Mean Corpuscular Volume 88.5 fl (80-94); Mean Platelet Volume 9.5 fL (7.4-10.4); Monocytes # 0.7 10^3/uL (0.2-0.9); Monocytes % 5.3 %; Neutrophils # 11.12 10^3/uL (1.8-7.7); Nucleated Red Blood Cells % 0 %; Platelet Count 264 10^3/cmm (130-400); Red Blood Count 4.59 10^6/uL (4.1-5.3); White Blood Count 13.9 10^3/uL (4.0-10.0)
[2022-10-21 10:23] LABS: Glucose Point of Care 221 mg/dL (70-110)
[2022-10-21 10:42] LABS: Glucose Point of Care 272 mg/dL (70-110)
--- NOTE | 2022-10-21 11:05 | PC.CHAP ---
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 [] Patient/Family/Request visit [] Outpatient visit [x] Follow-up visit [] Physician referral [] Code/Alert [x] Routine visit [] Staff referral [] Actively dying [] Patient sleeping [] Family support [] [] Out of room [] Palliative care [] [] Receiving care in room [] Pre-surgical visit [] Trauma [] Long length of stay [] ICU visit [] Other: Relational/Emotional Strength [] Patient feels connected with others/family/visitors/staff [] Distress [] Loneliness/isolation [] Abandonment Spirituality of Patient [] Person of Jazmin [] Attends Congregational of their Jazmin [] Believes in Prayer [] Reads Bible or Mandaeism materials [] There are Spiritual issues to be addressed Assisted Living Assistant Interventions [] Prayer [] Active listening [] Non-anxious presence [] Spiritual/emotional support [] Crisis/trauma care [] Spiritual counseling [] Bereavement support [] Provided bereavement packet [] Provided Bible/devotional materials [] Provided toy/stuffed animal, coloring book to patient or family member [] Provided Communion [] Anointing/[place] [] Salvation [] Completed spiritual assessment [] Other: Impact on Illness or Injury [] Angry [] Fearful [] Anxious [] Often cries [] Exhaustion [] Unable to work [] Unable to attend denominational [] Unable to walk/stand [] Unable to read [] Unable to drive [] Unable to eat/drink [] Unable to sleep [] Unable to be with family [] Patient intubated [] Other: Summary in OR Time spent with patient 5 mins
--- NOTE | 2022-10-21 11:33 | P.TS_ITS ---
Transfer Summary Providers Date of Admission: 10/20/22 18:15 Date of Discharge/Transfer: 10/21/22 Attending Provider at Admission: Matias Polanco DO Attending Provider at Transfer: Matias Polanco DO Primary Care Provider: Nba Arreaga Transfer Plans: Anticipated date of transfer: 10/21/22 . Receiving Facility: [facility] . Diagnoses at Discharge Discharge Diagnosis (1) Cholecystitis: Status: Acute (2) Hyperbilirubinemia: Status: Acute Reason for Visit Reason for Visit gallbladder pain, surgery in the morning Hospital Course Hospital Course This very pleasant 56-year-old gentleman who underwent laparoscopic cholecystectomy with intraoperative cholangiogram. Cholangiogram identified obstruction at the ampulla of Vater. Gallbladder was removed with purulent bile and abscess formation. Drain was placed into the gallbladder fossa. Intraoperatively, bilirubin was found to be 2.8 with a direct component being at 2.6. He was transferred in good condition to [facility] for potential ERCP. Physical Exam Narrative: General : Patient is well developed , no acute distress, oriented x3 Head : Normal cephalic, a-traumatic. Ears : Pinnae and external canal are normal. Hearing is normal. Eyes : PERRLA, Sclera and injection are normal. No conjunctival discharge. Nose : Mucous membranes are without erythema. Throat : buccal mucosa is normal, gums are without significant recession or hypertrophy. Lungs : Equal chest rise bilaterally, no use of accessory muscles, trachea is midline. Cor : Rate and rhythm are normal. Abdomen : Soft, ND, appropriately tender, no g/r/m drain serosanguineous Extremities : No edema, no cyanosis or clubbing, dorsalis pedis pulses are present bilaterally, non-tender to palpation of calves. Upper extremities are normal bilaterally. Back : non-tender to palpation, no CVA tenderness. Neuro : CN II - XII intact, Upper and lower extremities have equal and full strength TS Data Studies Completed and Pending Pending at discharge Category Date Time Status C-arm Fluoroscopy [id number] Routine Exams 10/21/22 07:03 Taken Pathology: Surgical [PTH] Routine Pth 10/21/22 09:12 Received Labs from last 24 hours 10/21/22 10/21/22 10/21/22 10:38 09:57 08:13 WBC 13.9 H Corrected WBC RBC 4.59 Hgb 12.4 Hct 40.6 L MCV 88.5 MCH 27.0 L MCHC 30.5 RDW 17.0 H Plt Count 264 MPV 9.5 Gran % Neut % (Auto) 80.0 Lymph % (Auto) 12.0 [place] % (Auto) 5.3 Eos % (Auto) 0.4 Baso % (Auto) 0.4 Neut # (Auto) 11.12 H Lymph # (Auto) 1.7 [place] # (Auto) 0.7 Eos # (Auto) 0.1 Baso # (Auto) 0.1 Absolute Gran (auto) Nucleated RBC % (auto) 0 Nucleated RBCs # 0.0 Sodium Cancelled Potassium Cancelled Chloride Cancelled Carbon Dioxide Cancelled Anion Gap Cancelled BUN Cancelled Creatinine Cancelled GFR Calculation Cancelled Glucose Cancelled POC Glucose 272 H Calculated Osmolality Cancelled Calcium Cancelled Total Bilirubin Cancelled Direct Bilirubin Cancelled AST Cancelled ALT Cancelled Alkaline Phosphatase Cancelled Total Protein Cancelled Albumin Cancelled Globulin Cancelled Lipase Urine Color Urine Appearance Urine pH Ur Specific [place] Urine Protein Urine Glucose (UA) Urine Ketones Urine Blood Urine Nitrate Urine Bilirubin Urine Urobilinogen Ur Leukocyte Esterase 10/21/22 10/21/22 10/21/22 08:13 08:13 07:07 WBC Cancelled Corrected WBC Cancelled RBC Cancelled Hgb Cancelled Hct Cancelled MCV Cancelled MCH Cancelled MCHC Cancelled RDW Cancelled Plt Count Cancelled MPV Cancelled Gran % Cancelled Neut % (Auto) Cancelled Lymph % (Auto) Cancelled [place] % (Auto) Cancelled Eos % (Auto) Cancelled Baso % (Auto) Cancelled Neut # (Auto) Cancelled Lymph # (Auto) Cancelled [place] # (Auto) Cancelled Eos # (Auto) Cancelled Baso # (Auto) Cancelled Absolute Gran (auto) Cancelled Nucleated RBC % (auto) Cancelled Nucleated RBCs # Cancelled Sodium 136 Potassium 4.4 Chloride 102 Carbon Dioxide 24 Anion Gap 14.4 BUN 16 Creatinine 1.1 GFR Calculation 69.0 L Glucose 219 H POC Glucose 221 H Calculated Osmolality 290 Calcium 8.4 L Total Bilirubin 2.8 H Direct Bilirubin 2.60 H AST 529 H ALT 687 H Alkaline Phosphatase 394 H Total Protein 6.4 L Albumin 3.6 Globulin 2.8 Lipase Urine Color Urine Appearance Urine pH Ur Specific [place] Urine Protein Urine Glucose (UA) Urine Ketones Urine Blood Urine Nitrate Urine Bilirubin Urine Urobilinogen Ur Leukocyte Esterase 10/20/22 10/20/22 10/20/22 17:51 14:58 14:58 WBC 12.4 H Corrected WBC RBC 5.02 Hgb 13.5 Hct 43.5 MCV 86.7 MCH 26.9 L MCHC 31.0 RDW 17.0 H Plt Count 298 MPV 9.4 Gran % Neut % (Auto) 73.6 Lymph % (Auto) 16.3 [place] % (Auto) 7.2 Eos % (Auto) 0.9 Baso % (Auto) 0.6 Neut # (Auto) 9.15 H Lymph # (Auto) 2.0 [place] # (Auto) 0.9 Eos # (Auto) 0.1 Baso # (Auto) 0.1 Absolute Gran (auto) Nucleated RBC % (auto) 0 Nucleated RBCs # 0.0 Sodium 136 Potassium 3.9 Chloride 95 L Carbon Dioxide 26 Anion Gap 18.9 BUN 20 Creatinine 1.2 GFR Calculation 62.4 L Glucose 204 H POC Glucose Calculated Osmolality 290 Calcium 9.8 Total Bilirubin 1.7 H Direct Bilirubin AST 302 H ALT 329 H Alkaline Phosphatase 344 H Total Protein 8.0 Albumin 4.2 Globulin 3.8 Lipase 20 Urine Color Yellow Urine Appearance Clear Urine pH 6 Ur Specific [place] 1.020 Urine Protein Neg Urine Glucose (UA) Trace H Urine Ketones Negative Urine Blood Neg Urine Nitrate Negative Urine Bilirubin Neg Urine Urobilinogen 4 H Ur Leukocyte Esterase Negative Completed Studies During Hospitalization Category Date Time Status US gall bladder [id number] Stat Ultrasound 10/20/22 16:09 Completed Laboratory Last Values WBC 13.9 10^3/uL (4.0-10.0) H 10/21/22 09:57 Corrected WBC Cancelled 10/21/22 08:13 RBC 4.59 10^6/uL (4.1-5.3) 10/21/22 09:57 Hgb 12.4 g/dL (11.7-16.6) 10/21/22 09:57 Hct 40.6 % (42.0-52.0) L 10/21/22 09:57 MCV 88.5 fl (80-94) 10/21/22 09:57 MCH 27.0 pg (28.0-34.0) L 10/21/22 09:57 MCHC 30.5 g/dL (30.0-36.0) 10/21/22 09:57 RDW 17.0 % (12.1-15.1) H 10/21/22 09:57 Plt Count 264 10^3/cmm (130-400) 10/21/22 09:57 MPV 9.5 fL (7.4-10.4) 10/21/22 09:57 Gran % Cancelled 10/21/22 08:13 Neut % (Auto) 80.0 % 10/21/22 09:57 Lymph % (Auto) 12.0 % 10/21/22 09:57 [place] % (Auto) 5.3 % 10/21/22 09:57 Eos % (Auto) 0.4 % 10/21/22 09:57 Baso % (Auto) 0.4 % 10/21/22 09:57 Neut # (Auto) 11.12 10^3/uL (1.8-7.7) H 10/21/22 09:57 Lymph # (Auto) 1.7 10^3/uL (0.8-4.8) 10/21/22 09:57 [place] # (Auto) 0.7 10^3/uL (0.2-0.9) 10/21/22 09:57 Eos # (Auto) 0.1 10^3/uL (0.0-0.8) 10/21/22 09:57 Baso # (Auto) 0.1 10^3/uL (0.0-0.1) 10/21/22 09:57 Absolute Gran (auto) Cancelled 10/21/22 08:13 Nucleated RBC % (auto) 0 % 10/21/22 09:57 Nucleated RBCs # 0.0 /100WBC 10/21/22 09:57 Sodium 136 mmol/L (136-145) 10/21/22 08:13 Sodium Cancelled 10/21/22 08:13 Potassium 4.4 mmol/L (3.5-5.1) 10/21/22 08:13 Potassium Cancelled 10/21/22 08:13 Chloride 102 mmol/L (98-107) 10/21/22 08:13 Chloride Cancelled 10/21/22 08:13 Carbon Dioxide 24 mmol/L (22-29) 10/21/22 08:13 Carbon Dioxide Cancelled 10/21/22 08:13 Anion Gap 14.4 (5-19) 10/21/22 08:13 Anion Gap Cancelled 10/21/22 08:13 BUN 16 mg/dL (6-20) 10/21/22 08:13 BUN Cancelled 10/21/22 08:13 Creatinine 1.1 mg/dL (0.7-1.2) 10/21/22 08:13 Creatinine Cancelled 10/21/22 08:13 GFR Calculation 69.0 mL/min (90-130) L 10/21/22 08:13 GFR Calculation Cancelled 10/21/22 08:13 Glucose 219 mg/dL (65-115) H 10/21/22 08:13 Glucose Cancelled 10/21/22 08:13 POC Glucose 272 mg/dL (70-110) H 10/21/22 10:38 Calculated Osmolality 290 mOsm/kg (285-295) 10/21/22 08:13 Calculated Osmolality Cancelled 10/21/22 08:13 Calcium 8.4 mg/dL (8.5-10.5) L 10/21/22 08:13 Calcium Cancelled 10/21/22 08:13 Total Bilirubin 2.8 mg/dL (0.15-1.2) H 10/21/22 08:13 Total Bilirubin Cancelled 10/21/22 08:13 Direct Bilirubin 2.60 mg/dL (0.00-0.30) H 10/21/22 08:13 Direct Bilirubin Cancelled 10/21/22 08:13 AST 529 U/L (0-40) H 10/21/22 08:13 AST Cancelled 10/21/22 08:13 ALT 687 U/L (0-41) H 10/21/22 08:13 ALT Cancelled 10/21/22 08:13 Alkaline Phosphatase 394 U/L (40-130) H 10/21/22 08:13 Alkaline Phosphatase Cancelled 10/21/22 08:13 Total Protein 6.4 g/dL (6.6-8.7) L 10/21/22 08:13 Total Protein Cancelled 10/21/22 08:13 Albumin 3.6 g/dL (3.5-5.2) 10/21/22 08:13 Albumin Cancelled 10/21/22 08:13 Globulin 2.8 g/dL (1.3-4.6) 10/21/22 08:13 Globulin Cancelled 10/21/22 08:13 Lipase 20 U/L (13-60) 10/20/22 14:58 Urine Color Yellow (Yellow) 10/20/22 17:51 Urine Appearance Clear (CLEAR) 10/20/22 17:51 Urine pH 6 (5-7) 10/20/22 17:51 Ur Specific [place] 1.020 (1.005-1.030) 10/20/22 17:51 Urine Protein Neg (Negative) 10/20/22 17:51 Urine Glucose (UA) Trace (Normal) H 10/20/22 17:51 Urine Ketones Negative (Negative) 10/20/22 17:51 Urine Blood Neg (Negative) 10/20/22 17:51 Urine Nitrate Negative (Negative) 10/20/22 17:51 Urine Bilirubin Neg (Negative) 10/20/22 17:51 Urine Urobilinogen 4 mg/dL (Negative) H 10/20/22 17:51 Ur Leukocyte Esterase Negative (Negative) 10/20/22 17:51 Radiology Impressions Gallbladder Ultrasound 10/20/22 16:09 IMPRESSION: No acute abnormality. Recent Clincial Data Last Vital Signs Temp 97.7 F 10/21/22 11:04 Pulse 90 10/21/22 11:04 Resp 18 10/21/22 11:04 BP 123/80 10/21/22 11:04 Pulse Ox 94 10/21/22 11:04 O2 Del Method Room Air 10/21/22 10:06 O2 Flow Rate 6 10/21/22 10:01 Vital Signs Temp Pulse Resp BP Pulse Ox O2 Del Method O2 Flow Rate 10/21/22 11:04 97.7 F 90 18 123/80 94 10/21/22 10:50 19 H 10/21/22 10:26 92 17 127/82 91 10/21/22 09:50 94 16 153/86 96 Simple Mask 6 10/21/22 10:06 96 16 144/87 90 Room Air 10/21/22 10:01 92 16 140/76 97 Simple Mask 6 10/21/22 09:45 94 16 149/85 96 Simple Mask 6 10/21/22 09:40 94 16 155/102 94 Simple Mask 6 10/21/22 09:39 6 10/21/22 09:35 97 F L 94 16 151/96 96 Simple Mask 6 10/21/22 06:32 98.1 F 90 18 150/98 95 Room Air 10/21/22 04:00 98.0 F 90 22 H 126/79 91 10/21/22 04:17 16 10/20/22 23:48 97.8 F 86 20 H 128/80 93 10/20/22 23:43 22 H Intake & Output/Weight 10/19/22 10/20/22 10/21/22 10/22/22 06:59 06:59 06:59 06:59 Intake Total 2.917 / 2.917 300 / 300 Output Total Balance 2.917 / 2.917 290 / 290 Weight 330 lb Procedures Performed Cholecystectomy with intraoperative cholangiogram Vitals Last Vital Signs Temp 97.7 F 10/21/22 11:04 Pulse 90 10/21/22 11:04 Resp 18 10/21/22 11:04 BP 123/80 10/21/22 11:04 Pulse Ox 94 10/21/22 11:04 O2 Del Method Room Air 10/21/22 10:06 O2 Flow Rate 6 10/21/22 10:01 TS Medications Medications Atorvastatin Calcium (Atorvastatin 40 Mg Tablet) 40 mg PO BEDTIME ALLAN Dextrose (Dextrose 50% Syringe 50 Ml) 50 ml IVP PRN PRN; Protocol PRN Reason: hypoglycemia protocol Dextrose (Dextrose 50% Syringe 50 Ml) 25 ml IVP ONCE PRN; Protocol PRN Reason: hypoglycemia protocol Glucagon (Glucagon 1 Mg/Ml Inj 1 Ml) 1 mg IM ONCE PRN; Protocol PRN Reason: Adult Acute Hypoglycemia Prot. Hydrochlorothiazide (Hydrochlorothiazide 25 Mg Tablet) 25 mg PO QAM ALLAN Sodium Chloride (Sodium Chloride 0.9%) 1,000 mls @ 125 mls/hr IV .Q8H ALLAN Last Infusion: 10/21/22 06:18 Dose: 0 mls/hr Dextrose (D5w) 500 mls @ 100 mls/hr IV ONCE PRN; Protocol PRN Reason: Adult Acute Hypoglycemia Prot Morphine Sulfate (Morphine 4 Mg/Ml Sdv 1 Ml) 4 mg IVP Q1H PRN PRN Reason: SEVERE PAIN Last Admin: 10/21/22 10:50 Dose: 4 mg Ondansetron HCl (Ondansetron 2 Mg/Ml Sdv 2 Ml) 4 mg IVP Q4H PRN PRN Reason: NAUSEA AND VOMITING Last Admin: 10/21/22 05:14 Dose: 4 mg Paroxetine HCl (Paroxetine 20 Mg Tablet) 30 mg PO BEDTIME ALLAN Discontinued Medications Albuterol Sulfate (Albuterol 2.5 Mg/3 Ml Neb) 2.5 mg INHALATION ONCE PRN PRN Reason: WHEEZING Diphenhydramine HCl (Diphenhydramine 50 Mg/Ml Sdv 1ml) 12.5 mg IVP ONCE PRN PRN Reason: Postop N/V Last Admin: 10/21/22 06:56 Dose: 12.5 mg Diphenhydramine HCl (Diphenhydramine 50 Mg/Ml Sdv 1ml) 12.5 mg IVP ONCE PRN PRN Reason: PONV Famotidine (Famotidine 20 Mg/2 Ml Inj) 20 mg IVP ONCE PRN PRN Reason: HEARTBURN Fentanyl (Fentanyl 50 Mcg/Ml Inj 2ml) 50 mcg IVP ONCE PRN PRN Reason: Preop Pain Glucagon (Glucagon 1 Mg/Ml Inj 1 Ml) 1 mg IV ONCE ONE Stop: 10/21/22 08:31 Hydromorphone HCl (Hydromorphone 1 Mg/Ml Inj 1 Ml) 0.5 mg IVP ONCE PRN PRN Reason: Phase II postop pain Hydromorphone HCl (Hydromorphone 1 Mg/Ml Inj 1 Ml) 0.5 mg IVP ONCE PRN PRN Reason: For preop pain/anxiety Sodium Chloride (Sodium Chloride 0.9%) 1,000 mls @ 30 mls/hr IV .Q24H ALLAN Stop: 10/22/22 06:29 Last Admin: 10/21/22 06:56 Dose: 30 mls/hr Cefazolin Sodium 3,000 mg/ (Sodium Chloride) 100 mls @ 200 mls/hr IV [employer] ONE; Protocol Stop: 10/21/22 07:44 Last Infusion: 10/21/22 07:57 Dose: Infused Iohexol (Iohexol 300 Mg/Ml 50 Ml Btl) 20 ml XX ONCE ONE Stop: 10/21/22 08:46 Last Admin: 10/21/22 08:45 Dose: 20 ml Ipratropium [place] (Ipratropium 0.5 Mg/2.5 Ml Neb) 0.5 mg INHALATION ONCE PRN PRN Reason: WHEEZING Lidocaine/Epinephrine (Lidocaine-Epi 2% 20 Ml Inj) 10 ml INJECTION ONCE ONE Stop: 10/21/22 08:22 Last Admin: 10/21/22 07:49 Dose: 10 ml Midazolam HCl (Midazolam 1 Mg/Ml Inj 2 Ml) 2 mg IVP ONCE PRN PRN Reason: Preop Anxiety Morphine Sulfate (Morphine 4 Mg/Ml Sdv 1 Ml) 4 mg IVP ONCE ONE Stop: 10/20/22 14:36 Last Admin: 10/20/22 15:03 Dose: 4 mg Morphine Sulfate (Morphine 4 Mg/Ml Sdv 1 Ml) 4 mg IVP ONCE ONE Stop: 10/20/22 16:11 Last Admin: 10/20/22 16:29 Dose: 4 mg Ondansetron HCl (Ondansetron 2 Mg/Ml Sdv 2 Ml) 4 mg IVP ONCE ONE Stop: 10/20/22 14:36 Last Admin: 10/20/22 15:03 Dose: 4 mg Ondansetron HCl (Ondansetron 2 Mg/Ml Sdv 2 Ml) 4 mg IVP ONCE PRN PRN Reason: NAUSEA AND VOMITING Last Admin: 10/21/22 06:56 Dose: 4 mg Scopolamine (Scopolamine 1.5 Patch) 1 patch TRANSDERMA ONCE PRN PRN Reason: Nausea/ Vomiting Prophylaxis Last Admin: 10/21/22 06:58 Dose: 1 patch Allergies chlorpromazine Allergy (Intermediate, Verified 10/21/22 11:08) Unknown dexamethasone Allergy (Unknown, Verified 10/21/22 11:08) Unknown erythromycin base Allergy (Unknown, Verified 10/21/22 11:08) Unknown ibuprofen Allergy (Unknown, Verified 10/21/22 11:08) Unknown metoclopramide Allergy (Unknown, Verified 10/21/22 11:08) Unknown pantoprazole Allergy (Unknown, Verified 10/21/22 11:08) Unknown acetaminophen [From Vicodin] Allergy (Verified 10/21/22 11:08) Unknown hydrocodone [From Vicodin] Allergy (Verified 10/21/22 11:08) Unknown lisinopril Adverse Reaction (Verified 10/21/22 11:08) Cough methylpred-80 Allergy (Unknown, Uncoded 09/08/22 15:26) Unknown Home Medications amlodipine 5 mg tablet 5 mg PO QAM 08/19/22 [History Confirmed 10/21/22] aspirin 81 mg tablet,delayed release 81 mg PO QAM 08/19/22 [History Confirmed 10/21/22] atorvastatin 40 mg tablet 40 mg PO BEDTIME 08/19/22 [History Confirmed 10/21/22] cetirizine 10 mg tablet 10 mg PO QAM 08/19/22 [History Confirmed 10/21/22] cholecalciferol (vitamin D3) 1,250 mcg (50,000 unit) capsule 50,000 unit PO Q14D 08/19/22 [History Confirmed 10/21/22] hydrochlorothiazide 25 mg tablet 25 mg PO QAM 08/19/22 [History Confirmed 10/21/22] insulin degludec 200 unit/mL (3 mL) subcutaneous pen (Tresiba FlexTouch U-200 insulin) See Rx Instructions .Route .COMPLEX 08/19/22 [History Confirmed 10/21/22] insulin lispro 200 unit/mL (3 mL) subcutaneous pen (Humalog KwikPen U-200 Insulin) See Rx Instructions .Route .COMPLEX 08/19/22 [History Confirmed 10/21/22] paroxetine HCl 30 mg tablet 30 mg PO BEDTIME 08/19/22 [History Confirmed ] azelastine 137 mcg (0.1 %) nasal spray aerosol 2 spray intranasal BID 10/21/22 [History Confirmed 10/21/22] Discharge Plan Discharge Patient Disposition: Home Condition: Stable Prescriptions: Continued atorvastatin 40 mg tablet 40 mg PO BEDTIME cetirizine 10 mg tablet 10 mg PO QAM amlodipine 5 mg tablet 5 mg PO QAM aspirin 81 mg Tablet,Delayed Release (Dr/Ec) 81 mg PO QAM paroxetine HCl 30 mg tablet 30 mg PO BEDTIME cholecalciferol (vitamin D3) 1,250 mcg (50,000 unit) capsule 50,000 unit PO Q14D insulin degludec [Tresiba FlexTouch U-200] 200 unit/mL (3 mL) insulin pen See Rx Instructions .ROUTE .COMPLEX Rx Instructions: 40 units subcutaneously qam and 100 units at bedtime Humalog KwikPen Insulin 200 unit/mL (3 mL) insulin pen See Rx Instructions .ROUTE .COMPLEX Rx Instructions: INJECT 45 UNITS 3 TIMES DAILY PLUS SLIDING SCALE. MAX DAILY 175 UNITS hydrochlorothiazide 25 mg tablet 25 mg PO QAM azelastine 137 mcg (0.1 %) aerosol,spray 2 spray INTRANASAL BID Discharge Orders: Discharge Order (Routine); Ordered 10/21/22 Ordered By: Matias Polanco Referrals: Nba Arreaga [Primary Care Provider] - Matias Polanco DO [Physician] - 2 weeks Discharge Activity: Resume usual activity Patient Instructions: Opioid Safety, Post Anesthesia Care Activity Restrictions/Additional Instructions: Do not soak incisions underwater for 2 weeks. Shower daily. Transfer Attestations Time Spent in Transfer Care: less than 30 min Quality Metrics Clinical Quality Measures [ No reported AMI, CVA or VTE this stay] Coding Level of Care Code Acute Code for g Fwd Diagnoses Cholecystitis K81.9 Hyperbilirubinemia E80.6
[2022-10-21] MEDS: piperacillin-tazobactam 3.375 GM in sodium chloride 0.9% (plus) 50 ML IV (12:10)
[2022-10-21] MEDS: sodium chloride 0.9% 1,000 ML 125 ML IV ×2 (12:10→17:06)
[2022-10-21] MEDS: sodium chloride 0.9% 1,000 ML 999 ML IV (13:00)
--- NOTE | 2022-10-21 15:12 | PC.SOCIAL ---
Patient in observation status, SDOH not completed.
--- NOTE | 2022-10-21 16:26 | ANE.PACU2 ---
Inpatient post-anesthesia follow up: Airway intact: Yes Vital signs: Temperature 97.7 F Pulse Rate 90 Respiratory Rate 20 Blood Pressure 123/80 Pulse Oximetry 94 Oxygen Delivery Me thod Room Air Oxygen Flow Rate 6 Fraction of Inspir ed Oxygen Hydration adequate: Yes Nausea and vomiting: No Pain level: 3 Mental status: Baseline
[2022-10-21 16:41] LABS: Glucose Point of Care 247 mg/dL (70-110)
[2022-10-21] MEDS: TRAMadol 50 mg Tablet 100 MG PO (16:44)
== END 2022-10-21 17:35 | disposition short-term general hospital (02) ==
LOC: ER 18:09 → MEDSURG 19:03
PROVIDERS: Physician Assistant; Admitting Provider Surgery; Emergency Provider Emergency Medicine; PCP Family Medicine; Visit Provider Surgery
PROC: 0FT44ZZ Resection of Gallbladder, Percutaneous Endoscopic Approach (ICD-10-PCS; CPT 47562; principal; 2022-10-21 07:00)
DX: K80.42 Calculus of bile duct with acute cholecystitis without obstruction (principal); E11.9 Type 2 diabetes mellitus without complications; Z79.82 Long term (current) use of aspirin; K82.A1 Gangrene of gallbladder in cholecystitis; E80.6 Other disorders of bilirubin metabolism; Z79.4 Long term (current) use of insulin; G47.33 Obstructive sleep apnea (adult) (pediatric); I10 Essential (primary) hypertension; E78.5 Hyperlipidemia, unspecified; E66.01 Morbid (severe) obesity due to excess calories; Z68.41 Body mass index [BMI] 40.0-44.9, adult
CPT/HCPCS: 47563; 36415; 36416; 74019; 76000; 76705; 80053; 81003; 82248; 82962; 83690; 85025; 88304; 96374; 96375; 96376; 99285; G0378; J0330; J0690; J1200; J1610; J1885; J2250; J2270; J2405; J2543; J2704; J2710; J3010; J3490; J7030; Q9967

== ENCOUNTER → 2022-11-10 16:53 | Outpatient (BNVA) | payer BC, SELFPAY | PROVIDERS: PCP Family Medicine; Visit Provider Surgery | DX: R10.9 Unspecified abdominal pain (principal) | CPT/HCPCS: 36415; 80048; 80076; 85025 ==

== ENCOUNTER → 2024-11-07 12:11 | Outpatient (BNVA) | payer BC, SELFPAY | PROVIDERS: PCP Family Medicine; Visit Provider Family Medicine | DX: M79.5 Residual foreign body in soft tissue (principal); M19.041 Primary osteoarthritis, right hand | CPT/HCPCS: 73130 ==

== ENCOUNTER 2025-01-08 16:09 | Outpatient (CLI) | payer BC, SELFPAY ==
--- NOTE | 2025-01-08 16:21 | XRR_ITS ---
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 TECHNIQUE: Imaging protocol: Radiologic exam of the left ankle. Views: 3 or more views. COMPARISON: CR XR tibia fibula LT 2V [id number] 01/08/2025 4:26 PM FINDINGS: Bones/joints: Mildly displaced oblique fracture of the lateral malleolus with intra-articular extension into the ankle joint. No other fractures or malalignment. Plantar calcaneal spur. Achilles tendon insertional enthesophyte. Soft tissues: Soft tissue swelling of the ankle, especially of the lateral malleolus. XR/XR ankle LT min 3V* [id number] IMPRESSION: 1. Mildly displaced oblique fracture of the lateral malleolus with intra-articular extension into the ankle joint. 2. No other fractures or malalignment. 3. Soft tissue swelling of the ankle, especially of the lateral malleolus.
--- NOTE | 2025-01-08 16:21 | XRR_ITS ---
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 Views: 2 views. COMPARISON: CR XR tibia fibula RT 2V [id number] 01/08/2025 4:26 PM FINDINGS: Bones/joints: No acute fractures or malalignment. Small plantar calcaneal spur. No dislocations or subluxations. Soft tissues: Mild soft tissue swelling about the ankle. XR/XR ankle RT 2V [id number] IMPRESSION: 1. No acute fractures or malalignment. 2. Mild soft tissue swelling about the ankle.
--- NOTE | 2025-01-08 16:21 | XRR_ITS ---
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 Views: 2 views. COMPARISON: CR XR ankle LT min 3V* [id number] 01/08/2025 4:26 PM FINDINGS: Bones/joints: Oblique minimally displaced fracture of the lateral malleolus. No other fractures or malalignment impression. Soft tissues: Soft tissue swelling about the ankle. XR/XR tibia fibula LT 2V [id number] IMPRESSION: 1. Oblique minimally displaced fracture of the lateral malleolus. 2. No other fractures or malalignment. 3. Soft tissue swelling about the ankle.
--- NOTE | 2025-01-08 16:21 | XRR_ITS ---
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 Views: 3 views. COMPARISON: CR XR ankle RT 2V [id number] 01/08/2025 4:26 PM FINDINGS: Bones/joints: No acute fractures or malalignment. No dislocations or subluxations. Soft tissues: Mild soft tissue swelling about the ankle. XR/XR tibia fibula RT 2V [id number] IMPRESSION: 1. No acute fractures or malalignment. 2. Mild soft tissue swelling about the ankle. On.
== END 2025-01-08 16:10 | disposition home or self-care (01) ==
PROVIDERS: PCP Family Medicine; Visit Provider Family Medicine
DX: S89.90XA Unspecified injury of unspecified lower leg, initial encounter (principal); X58.XXXA Exposure to other specified factors, initial encounter
CPT/HCPCS: 73590; 73600; 73610